=== PATIENT | female | born 1995 | race Caucasian/White ===

== ENCOUNTER 2016-06-23 19:22 | Emergency (ER) | payer MEDICAID, OTHER ==
--- NOTE | 2016-06-23 22:01 | EDDOCDS ---
Physician Documentation [facility] Name: Nedra Walker Age: 20 yrs Sex: Female : 1995 Arrival Date: 06/23/2016 Time: 19:22 Bed PR Private MD: NO PRIMARY PHYSICIAN, . Disposition: 06/23/16 21:55 Discharged to Home/Self Care. Impression: related conditions, unspecified, third trimester - pedal edema. - Condition is Stable. - Discharge Instructions: Edema. - Medication Reconciliation form. - Follow up: Emergency Department; When: As needed; Reason: Worsening of conditions. Follow up: Guillermo Brock MD; When: Call to arrange an appointment; Reason: Wound/Symptom Recheck, Recheck today's complaints, Worsening of conditions, Continuance of care. - Problem is an ongoing problem. - Symptoms are unchanged. Historical: - Allergies: no known allergies; - Home Meds: 1. none - PMHx: none; - PSHx: none; - Social history: Smoking status: Patient uses tobacco products, light tobacco smoker. No barriers to communication noted, The patient speaks fluent Croatian. - Family history: Not pertinent. - : The pt / caregiver states he / she is not on anticoagulants. Home medication list is obtained from the patient. - Exposure Risk Screening:: None identified. 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 6 in. (167.64 cm) (R); Pain 0/10; 21:40 BP 129 / 60; Pulse 72; Resp 18; Temp 97.8(T); Pulse Ox 95% ; jb5 19:24 Body Mass Index 40.35 (113.40 kg, 167.64 cm) elp MDM: 20:07 Heart Tones ordered. cc10 20:09 US Lower Extremities Bilateral R/O DVT Ordered. EDMS 21:33 Vital Signs ordered. cc10 21:59 Financial registration complete. zo Signatures: Dispatcher MedHost Jennifer Núñez, Lion Dang RN, mcp, Colin, ELIER PAPepeC cc10 MTDD
--- NOTE | 2016-06-23 22:02 | EDDOCDS ---
Nurse's Notes [facility] Name: Nedra Walker Age: 20 yrs Sex: Female : 1995 Arrival Date: 06/23/2016 Time: 19:22 Bed PR Private MD: NO PRIMARY PHYSICIAN, . Diagnosis: related conditions, unspecified, third trimester-pedal edema Presentation: 06/23 19:26 Presenting complaint: Patient states: Right foot started swelling yesterday--is 39 mcp weeks . Adult Sepsis Screening: The patient does not have new or worsening altered mentation. Patient's respiratory rate is less than 22. Systolic blood pressure is greater than 100. Patient has a qSOFA score of 0- Negative Sepsis Screen. Suicide/Homicide risk assessment- the patient denies having any suicidal and/or homicidal ideations and does not present with any other emotional, behavioral or mental health complaints. Status: Patient is not a service writer advisor or dependent. Transition of care: patient was not received from another setting of care. 19:26 Acuity: DAVID Level 4 [facility] 19:26 Method Of Arrival: Walkin/Carried/Asstd [facility] Triage Assessment: 19:29 General: Appears in no apparent distress, Behavior is cooperative. Pain: Denies pain. [facility] HIV screening NA for this visit Offered previously. Neurological: No deficits noted. Respiratory: Airway is patent Respiratory effort is even, unlabored. Derm: Skin is pink, warm & dry. Musculoskeletal: Swelling present in right foot. 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 none - PMHx: none; - PSHx: none; - Social history: Smoking status: Patient uses tobacco products, light tobacco smoker. No barriers to communication noted, The patient speaks fluent [place]. - Family history: Not pertinent. - : The pt / caregiver states he / she is not on anticoagulants. Home medication list is obtained from the patient. - Exposure Risk Screening:: None identified. Screenin:59 Screening information is obtained from the patient. Fall risk: No risks identified. mcp Assistance ADL's: requires no assistance with activities of daily living. Abuse/DV Screen: The patient / caregiver reports he/she is: not in a situation that causes fear, pain or injury. Nutritional screening: No deficits noted. Advance Directives: There is no active DNR order. home support is adequate. Assessment: 21:59 General: Appears in no apparent distress, Behavior is cooperative. Pain: Denies pain. mcp Neurological: No deficits noted. Respiratory: Airway is patent Respiratory effort is even, unlabored. Derm: Skin is pink, warm & dry. Musculoskeletal: Swelling present in right foot and left foot. Vital Signs: 19:24 BP 138 / 64; Pulse 93; Resp 18; Temp 98.7(O); Pulse Ox 97% on R/A; Weight 113.4 kg (R); elp Height 5 ft. 6 in. (167.64 cm) (R); Pain 0/10; 21:40 BP 129 / 60; Pulse 72; Resp 18; Temp 97.8(T); Pulse Ox 95% ; jb5 19:24 Body Mass Index 40.35 (113.40 kg, 167.64 cm) elp Vitals: 19:24 Log In Time: June 23, 2016 at 19:22. elp 20:23 Heart Tones 148BPM. [facility] ED Course: 19:24 Patient visited by Bree Haddad PCA. elp 19:24 NO PRIMARY PHYSICIAN, . is Private Physician. elp 19:24 Patient moved to Waiting elp 19:25 Patient visited by Bree Haddad PCA. elp 19:25 Patient moved to Pre RCE elp 19:27 Triage Initiated [facility] 19:29 Patient visited by Jennifer Monzon RN. mcp 19:38 Patient moved to Triage 1 [facility] 19:56 Keith Onofre [facility]C [facility] cc10 19:56 Chris Hoang DO is Attending Physician. cc10 19:56 Patient visited by Keith Onofre PA-C. cc10 19:56 Patient visited by Keith Onofre PA-C. cc10 20:23 Patient moved to TR1 [facility] 21:35 Patient moved to PR1 / 25 [facility] 21:36 Patient visited by Fanny Martinez PCA. jb5 21:41 Patient visited by Fanny Martinez PCA. jb5 21:55 Guillermo Brock MD is Referral Physician. cc10 21:59 The patient / caregiver is instructed regarding the plan of care and ED course. Patient mcp has correct armband on for positive identification. Bed in low position. Call light in reach. 22:00 No IV's were initiated during this patient's visit. No procedures done that require mcp assistance. Order Results: There are currently no results for this order. Outcome: 21:55 Discharge ordered by Provider. cc10 22:00 Discharge Assessment: patient administered narcotics - no. The following High Risk mcp Discharge criteria are identified: None. Discharged to home ambulatory. Condition: stable. Discharge instructions given to patient, Instructed on discharge instructions, follow up and referral plans. Demonstrated understanding of instructions, Pt was receptive of discharge instructions/ teaching. Ultrasound Study completed. Property sent home with patient. 22:01 Patient left the ED. mcp Signatures: Jennifer Monzon, RN RN Fanny Chacon, DRILLER'S ASSISTANT DRILLER'S ASSISTANT jb5 Vanessa Lopez RN RN Bree Dyson, DRILLER'S ASSISTANT DRILLER'S ASSISTANT Keith Dye, PA-C PA-C cc10 CHIQUIS
--- NOTE | 2016-06-23 22:10 | REPUSA ---
Clinical history: Pain, swelling. Findings: The common femoral, superficial femoral, popliteal, and other deep venous structures compre ss normally and demonstrate normal color Doppler flow. Normal venous waveforms with augmentation are seen. Impression: No evidence of deep vein thrombosis in either femoral popliteal venous system.
--- NOTE | 2016-06-27 10:02 | EDDOCDS ---
Physician Documentation [facility] Name: Nedra Walker Age: 20 yrs Sex: Female : 1995 Arrival Date: 06/23/2016 Time: 19:22 Bed PR Private MD: NO PRIMARY PHYSICIAN, . Disposition: 06/23/16 21:55 Discharged to Home/Self Care. Impression: related conditions, unspecified, third trimester - pedal edema. - Condition is Stable. - Discharge Instructions: Edema. - Medication Reconciliation form. - Follow up: Emergency Department; When: As needed; Reason: Worsening of conditions. Follow up: Guillermo Brock MD; When: Call to arrange an appointment; Reason: Wound/Symptom Recheck, Recheck today's complaints, Worsening of conditions, Continuance of care. - Problem is an ongoing problem. - Symptoms are unchanged. Historical: - Allergies: no known allergies; - Home Meds: 1. none - PMHx: none; - PSHx: none; - Social history: Smoking status: Patient uses tobacco products, light tobacco smoker. No barriers to communication noted, The patient speaks fluent Macedonian. - Family history: Not pertinent. - : The pt / caregiver states he / she is not on anticoagulants. Home medication list is obtained from the patient. - Exposure Risk Screening:: None identified. 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 6 in. (167.64 cm) (R); Pain 0/10; 21:40 BP 129 / 60; Pulse 72; Resp 18; Temp 97.8(T); Pulse Ox 95% ; jb5 19:24 Body Mass Index 40.35 (113.40 kg, 167.64 cm) elp MDM: 20:07 Heart Tones ordered. cc10 20:09 US Lower Extremities Bilateral R/O DVT Ordered. EDMS 21:33 Vital Signs ordered. cc10 21:59 Financial registration complete. zo 23:29 [facility] Payment Agreement was scanned into Skoovy and attached to record. zo 06/24 08:22 T-Sheet-- Draft Copy was scanned into Skoovy and attached to record. [facility] Signatures: Dispatcher [employer] Jennifer Núñez RN Lion Dang mcp, Colin, PA-C PA-C cc10 Mikaela Lopez [facility] The chart was reviewed and I authenticate all verbal orders and agree with the evaluation and treatment provided.Attachments: 06/23 23:29 [facility] Payment Agreement zo 06/24 08:22 T-Sheet-- Draft Copy [facility] Chart Complete MTDD
--- NOTE | 2016-06-27 10:02 | EDDOCDS ---
Nurse's Notes [facility] Name: Nedra Walker Age: 20 yrs Sex: Female : 1995 Arrival Date: 06/23/2016 Time: 19:22 Bed PR Private MD: NO PRIMARY PHYSICIAN, . Diagnosis: related conditions, unspecified, third trimester-pedal edema Presentation: 06/23 19:26 Presenting complaint: Patient states: Right foot started swelling yesterday--is 39 mcp weeks . Adult Sepsis Screening: The patient does not have new or worsening altered mentation. Patient's respiratory rate is less than 22. Systolic blood pressure is greater than 100. Patient has a qSOFA score of 0- Negative Sepsis Screen. Suicide/Homicide risk assessment- the patient denies having any suicidal and/or homicidal ideations and does not present with any other emotional, behavioral or mental health complaints. Status: Patient is not a ambulatory services representative or dependent. Transition of care: patient was not received from another setting of care. 19:26 Acuity: DAVID Level 4 [facility] 19:26 Method Of Arrival: Walkin/Carried/Asstd [facility] Triage Assessment: 19:29 General: Appears in no apparent distress, Behavior is cooperative. Pain: Denies pain. [facility] HIV screening NA for this visit Offered previously. Neurological: No deficits noted. Respiratory: Airway is patent Respiratory effort is even, unlabored. Derm: Skin is pink, warm & dry. Musculoskeletal: Swelling present in right foot. 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 none - PMHx: none; - PSHx: none; - Social history: Smoking status: Patient uses tobacco products, light tobacco smoker. No barriers to communication noted, The patient speaks fluent Cuban. - Family history: Not pertinent. - : The pt / caregiver states he / she is not on anticoagulants. Home medication list is obtained from the patient. - Exposure Risk Screening:: None identified. Screenin:59 Screening information is obtained from the patient. Fall risk: No risks identified. mcp Assistance ADL's: requires no assistance with activities of daily living. Abuse/DV Screen: The patient / caregiver reports he/she is: not in a situation that causes fear, pain or injury. Nutritional screening: No deficits noted. Advance Directives: There is no active DNR order. home support is adequate. Assessment: 21:59 General: Appears in no apparent distress, Behavior is cooperative. Pain: Denies pain. mcp Neurological: No deficits noted. Respiratory: Airway is patent Respiratory effort is even, unlabored. Derm: Skin is pink, warm & dry. Musculoskeletal: Swelling present in right foot and left foot. Vital Signs: 19:24 BP 138 / 64; Pulse 93; Resp 18; Temp 98.7(O); Pulse Ox 97% on R/A; Weight 113.4 kg (R); elp Height 5 ft. 6 in. (167.64 cm) (R); Pain 0/10; 21:40 BP 129 / 60; Pulse 72; Resp 18; Temp 97.8(T); Pulse Ox 95% ; jb5 19:24 Body Mass Index 40.35 (113.40 kg, 167.64 cm) elp Vitals: 19:24 Log In Time: June 23, 2016 at 19:22. elp 20:23 Heart Tones 148BPM. [facility] ED Course: 19:24 Patient visited by Bree Haddad PCA. elp 19:24 NO PRIMARY PHYSICIAN, . is Private Physician. elp 19:24 Patient moved to Waiting elp 19:25 Patient visited by Bree Haddad PCA. elp 19:25 Patient moved to Pre RCE elp 19:27 Triage Initiated [facility] 19:29 Patient visited by Jennifer Monzon RN. mcp 19:38 Patient moved to Triage 1 [facility] 19:56 [facility] cc[facility] 19:56 Chris Hoang DO is Attending Physician. cc10 19:56 Patient visited by Keith Onofre PA-C. cc10 19:56 Patient visited by Keith Onofre PA-C. cc10 20:23 Patient moved to TR1 [facility] 21:35 Patient moved to PR1 / 25 [facility] 21:36 Patient visited by Fanny Martinez PCA. jb5 21:41 Patient visited by Fanny Martinez PCA. jb5 21:55 Guillermo Brock MD is Referral Physician. cc10 21:59 The patient / caregiver is instructed regarding the plan of care and ED course. Patient mcp has correct armband on for positive identification. Bed in low position. Call light in reach. 22:00 No IV's were initiated during this patient's visit. No procedures done that require mcp assistance. 22:52 US Lower Extremities Bilateral R/O DVT Returned. EDNE 23:29 [facility] Payment Agreement was scanned into MOLI and attached to record. jonnie 06/24 08:22 T-Sheet-- Draft Copy was scanned into MOLI and attached to record. [facility] Order Results: Radiology Order: US Lower Extremities Bilateral R/O DVT Test: US Lower Extremities Bilateral R/O DVT REASON FOR EXAMINATION: Deformity/Swelling; ; Clinical history: Pain, swelling.; Findings: The common femoral, superficial femoral, popliteal, and other deep venous structures compre; ss normally and demonstrate normal color Doppler flow. Normal venous waveforms with augmentation are; seen.; Impression:; No evidence of deep vein thrombosis in either femoral popliteal venous system.; ; Outcome: 06/23 21:55 Discharge ordered by Provider. cc10 22:00 Discharge Assessment: patient administered narcotics - no. The following High Risk mcp Discharge criteria are identified: None. Discharged to home ambulatory. Condition: stable. Discharge instructions given to patient, Instructed on discharge instructions, follow up and referral plans. Demonstrated understanding of instructions, Pt was receptive of discharge instructions/ teaching. Ultrasound Study completed. Property sent home with patient. 22:01 Patient left the ED. mcp Signatures: [facility] Jennifer Monzon RN RN Fanny Chacon, ILLUSTRATOR SET ILLUSTRATOR SET jb5 Lion Cheek Jane, RN RN [facility] Bree Haddad, ILLUSTRATOR SET ILLUSTRATOR SET andrep Keith Onofre PAPepeC PAPepeC cc10 Mikaela Lopez Chart Complete MTDD
--- NOTE | 2016-06-27 10:02 | EDDOCDS ---
Physician Documentation [facility] Name: Nedra Walker Age: 20 yrs Sex: Female : 1995 Arrival Date: 06/23/2016 Time: 19:22 Bed PR Private MD: NO PRIMARY PHYSICIAN, . Disposition: 06/23/16 21:55 Discharged to Home/Self Care. Impression: related conditions, unspecified, third trimester - pedal edema. - Condition is Stable. - Discharge Instructions: Edema. - Medication Reconciliation form. - Follow up: Emergency Department; When: As needed; Reason: Worsening of conditions. Follow up: Guillermo Brock MD; When: Call to arrange an appointment; Reason: Wound/Symptom Recheck, Recheck today's complaints, Worsening of conditions, Continuance of care. - Problem is an ongoing problem. - Symptoms are unchanged. Historical: - Allergies: no known allergies; - Home Meds: 1. none - PMHx: none; - PSHx: none; - Social history: Smoking status: Patient uses tobacco products, light tobacco smoker. No barriers to communication noted, The patient speaks fluent Sami. - Family history: Not pertinent. - : The pt / caregiver states he / she is not on anticoagulants. Home medication list is obtained from the patient. - Exposure Risk Screening:: None identified. 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 6 in. (167.64 cm) (R); Pain 0/10; 21:40 BP 129 / 60; Pulse 72; Resp 18; Temp 97.8(T); Pulse Ox 95% ; jb5 19:24 Body Mass Index 40.35 (113.40 kg, 167.64 cm) elp MDM: 20:07 Heart Tones ordered. cc10 20:09 US Lower Extremities Bilateral R/O DVT Ordered. EDMS 21:33 Vital Signs ordered. cc10 21:59 Financial registration complete. zo 23:29 [facility] Payment Agreement was scanned into [employer]Noise and attached to record. zo 06/24 08:22 T-Sheet-- Draft Copy was scanned into oNoise and attached to record. [facility] Signatures: Dispatcher [employer] Jennifer Núñez RN Lion Dang mcp, Colin, PA-C PA-C cc10 Mikaela Lopez [facility] The chart was reviewed and I authenticate all verbal orders and agree with the evaluation and treatment provided.Attachments: 06/23 23:29 [facility] Payment Agreement zo 06/24 08:22 T-Sheet-- Draft Copy [facility] Chart Complete MTDD
== END 2016-06-23 22:01 | disposition home or self-care (01) ==
LOC: M ED 19:22
DX: O12.03 Gestational edema, third trimester (principal); O99.333 Smoking (tobacco) complicating pregnancy, third trimester; Z3A.39 39 weeks gestation of pregnancy

== ENCOUNTER 2016-07-08 12:58 | Inpatient (IN) | payer OTHER ==
[2016-07-08] VITALS (28 sets, daily range): BP systolic 102–152; BP diastolic 51–88
[~2016-07-08] VITALS: Ht 167.6 cm; Wt 112.0 kg
[2016-07-08] MEDS ORDERED: FLINCHW9 PO (13:08)
[2016-07-08] MEDS ORDERED: LACTATED RINGER'S 1000 ML IV STA (15:16)
[2016-07-08] MEDS ORDERED: LR 1,000 ML IV SCH (15:16)
[2016-07-08] MEDS ORDERED: OXYTOCIN DRIP 30 UNITS in APPROPRIATE DILUENT 1 EA IV SCH (15:30)
[2016-07-08 16:27] LABS: MEAN CORPUSCULAR HEMOGLOBIN 25.3 pg (27.0-33.0); MEAN CORPUSCULAR HGB CONC 31.3 g/dl (32.0-36.5); MEAN CORPUSCULAR VOLUME 80.7 fl (80.0-96.0)
[2016-07-08 16:49] LABS: ALT/SGPT 36 U/L (12-78); AST/SGOT 24 U/L (15-37); BILIRUBIN,TOTAL 0.2 MG/DL (0.2-1.0); CREATININE FOR GFR 0.63 MG/DL (0.55-1.02); URIC ACID 5.4 MG/DL (2.6-6.0)
[2016-07-08] MEDS ORDERED: PROMETHAZINE INJ 25 MG/ML VIAL (J2550) IV ONE (19:30)
[2016-07-08] MEDS ORDERED: BUTORPHANOL 2 MG/ML INJ (J0595) IV ONE (19:30)
[2016-07-08] MEDS ORDERED: FENTANYL 2MCG/ML ROPIVACAINE 0.2% NACL 250 ML CADD As Ordered ONE (22:39)
[2016-07-09] VITALS (29 sets, daily range): BP systolic 105–161; BP diastolic 55–83
[2016-07-09] MEDS ORDERED: EPIDURAL/PCA KEYS XX PRN (00:15)
[2016-07-09] MEDS ORDERED: ePHEDrine SULFATE 25 MG/5 ML(5MG/ML) SYRINGE IV PRN (00:15)
[2016-07-09] MEDS ORDERED: REFRIGERATOR IV KEYS XX PRN (00:15)
[2016-07-09] MEDS ORDERED: EPIDURAL COMMENT XX SCH (00:15)
[2016-07-09] MEDS ORDERED: FENTANYL/ROPIVACAINE/NACL CADD 250 ML EPIDURAL SCH (00:15)
[2016-07-09] MEDS ORDERED: ONDANSETRON 4MG/2ML VIAL (J2405) IV PRN ×2 (00:15→07:30)
[2016-07-09] MEDS ORDERED: OXYTOCIN DRIP 30 UNITS in APPROPRIATE DILUENT 1 EA IV SCH (07:17)
[2016-07-09] MEDS: LR 1,000 ML IV SCH ×3 (07:17→23:17)
[2016-07-09] MEDS ORDERED: METHYLERGONOVINE MALEATE 0.2 MG TAB PO PRN (07:30)
[2016-07-09] MEDS ORDERED: MEASLES,MUMPS,RUBELLA VACCINE INJ (MMR-II) (90707) SC SCH (07:30)
[2016-07-09] MEDS ORDERED: PROMETHAZINE 25 MG TAB PO PRN (07:30)
[2016-07-09] MEDS ORDERED: RHOGAM 300 MCG (1500 IU) INJ (J2790) IM SCH (07:30)
[2016-07-09] MEDS ORDERED: DOCUSATE SODIUM 100 MG CAP PO PRN (07:30)
[2016-07-09] MEDS ORDERED: ACETAMINOPHEN 500 MG TAB PO PRN (07:30)
[2016-07-09] MEDS ORDERED: DIBUCAINE 1% OINTMENT 30GM TOP PRN (07:30)
[2016-07-09] MEDS: PRENATAL VITAMIN TAB PO SCH (12:04)
[2016-07-10 06:18] VITALS: BP 127/68
[2016-07-10] MEDS: LR 1,000 ML IV SCH (07:17)
[2016-07-10] MEDS: PRENATAL VITAMIN TAB PO SCH (08:11)
[2016-07-10] MEDS: IBUPROFEN 800 MG TAB PO PRN ×2 (08:12→23:05)
[2016-07-10] MEDS ORDERED: INFLUENZA QUADRIVALENT PF VACCINE 0.5ML SYRINGE/VIAL (90686) IM ONE (09:00)
[2016-07-10 18:00] VITALS: BP 132/65
[2016-07-11 06:07] VITALS: BP 135/67
[2016-07-11] MEDS ORDERED: ACET50TA PO (08:38)
[2016-07-11] MEDS ORDERED: NUPE1OIN2 TOP (08:38)
[2016-07-11] MEDS ORDERED: IBUP-1114 PO (08:38)
[2016-07-11] MEDS ORDERED: PRENTAB9 PO (08:38)
[2016-07-11] MEDS: PRENATAL VITAMIN TAB PO SCH (08:59)
== END 2016-07-11 15:40 | disposition home or self-care (01) | DRG 560 ==
LOC: M LDO 12:58 → M LDI 14:40 → M OBS 07-09 08:53
PROVIDERS: ADMIT Obstetrics & Gynecology; ATTEND Obstetrics & Gynecology
PROC: 10907ZC Drainage of Amniotic Fluid, Therapeutic from Products of Conception, Via Natural or Artificial Opening (ICD-10-PCS; 2016-07-08)
PROC: 10E0XZZ Delivery of Products of Conception, External Approach (ICD-10-PCS; principal; 2016-07-09)
PROC: 0KQM0ZZ Repair Perineum Muscle, Open Approach (ICD-10-PCS; 2016-07-09)
DX: O48.0 Post-term pregnancy (principal); Z3A.41 41 weeks gestation of pregnancy; O99.334 Smoking (tobacco) complicating childbirth; F17.210 Nicotine dependence, cigarettes, uncomplicated; O99.214 Obesity complicating childbirth; E66.9 Obesity, unspecified; O70.1 Second degree perineal laceration during delivery; Z37.0 Single live birth

== ENCOUNTER 2017-02-11 00:34 | Emergency (ER) | payer OTHER ==
[~2017-02-11] VITALS: Ht 167.6 cm; Wt 101.4 kg
[~2017-02-11 00:34] MED LIST: ACET50TA PO; FLINCHW9 PO; IBUP-1114 PO; NUPE1OIN2 TOP; PRENTAB9 PO
[2017-02-11 00:48] VITALS: BP 139/78
[2017-02-11] MEDS ORDERED: CLOTRIMAZOLE ANTI12 TOP (01:35)
== END 2017-02-11 01:47 | disposition home or self-care (01) ==
LOC: M ED 00:34
DX: B35.4 Tinea corporis (principal); F17.210 Nicotine dependence, cigarettes, uncomplicated

== ENCOUNTER → 2017-03-23 | Outpatient (REF) | payer OTHER ==
[~2017-03-23] MED LIST changes: +CLOTRIMAZOLE ANTI12 TOP
[2017-03-23 18:12] LABS: ALBUMIN 3.6 GM/DL (3.2-5.2); ALBUMIN/GLOBULIN RATIO 0.92 (1.00-1.93); ALKALINE PHOSPHATASE 85 U/L (45-117); ALT/SGPT 39 U/L (12-78); ANION GAP 9 MEQ/L (8-16); AST/SGOT 17 U/L (15-37); BILIRUBIN,TOTAL 0.2 MG/DL (0.2-1.0); BLOOD UREA NITROGEN 13 MG/DL (7-18); CALCIUM LEVEL 8.9 MG/DL (8.5-10.1); CARBON DIOXIDE LEVEL 25 MEQ/L (21-32); CHLORIDE LEVEL 107 MEQ/L (98-107); CREATININE FOR GFR 0.75 MG/DL (0.55-1.02); FREE T4 1.19 NG/DL (0.78-1.33); GLUCOSE, FASTING 76 MG/DL (70-105); POTASSIUM SERUM 4.1 MEQ/L (3.5-5.1); SODIUM LEVEL 141 MEQ/L (136-145); TOTAL PROTEIN 7.5 GM/DL (6.4-8.2)
== END ==
LOC: M SFHCPLAZ 15:49
PROVIDERS: ATTEND Nurse Practitioner Family
DX: Z00.00 Encounter for general adult medical examination without abnormal findings (principal); Z68.41 Body mass index [BMI] 40.0-44.9, adult

== ENCOUNTER → 2017-07-31 | Outpatient (REF) | payer OTHER, MEDICAID ==
[2017-07-31 14:04] LABS: CHLAMYDIA DNA AMPLIFICATION NEGATIVE (NEGATIVE); GC DNA AMPLIFICATION NEGATIVE (NEGATIVE)
[2017-07-31 14:34] LABS: LUTEINIZING HORMONE 8.8 mIU/mL; PROLACTIN 7.8 NG/ML
[2017-07-31 14:35] LABS: FOLLICLE STIMULATING HORMONE 7.7 mIU/mL
[2017-08-04 00:06] LABS: 17 HYDROXY PROGESTERONE 10 ng/dL (.); DEHYDROEPIANDROSTERONE SULFATE 159.5 ug/dL (110.0-431.7)
== END ==
LOC: M SFHCWAGY 11:28
DX: N91.2 Amenorrhea, unspecified (principal)
CPT/HCPCS: 83001

== ENCOUNTER → 2018-04-11 | Outpatient (REF) | payer OTHER ==
[2018-04-11 16:21] LABS: BASO % 0.4 % (0.0-1.0); EOS # 0.1 10^3/uL (0.0-0.50); EOS % 1.7 % (0.0-3.0); IMMATURE GRANULOCYTE % 0.3 % (0-3.0); LYMPH # 1.8 10^3/uL (1.5-6.5); LYMPH % 22.9 % (24.0-44.0); MEAN CORPUSCULAR HEMOGLOBIN 26.8 pg (27.0-33.0); MEAN CORPUSCULAR HGB CONC 31.8 g/dl (32.0-36.5); MEAN CORPUSCULAR VOLUME 84.3 fl (80.0-96.0); MONO # 0.5 10^3/uL (0.0-0.8); MONO % 5.9 % (0.0-5.0); NEUTROPHILS # 5.4 10^3/uL (1.8-7.7); NEUTROPHILS % 68.8 % (36.0-66.0); PLATELET COUNT, AUTOMATED 182 10^3/uL (150-450); RED BLOOD COUNT 5.22 10^6/uL (4.00-5.40); RED CELL DISTRIBUTION WIDTH 14.7 % (11.5-14.5); WHITE BLOOD COUNT 7.8 10^3/uL (4.0-10.0)
[2018-04-11 16:40] LABS: ALBUMIN 3.7 GM/DL (3.2-5.2); ALBUMIN/GLOBULIN RATIO 1.06 (1.00-1.93); ALKALINE PHOSPHATASE 103 U/L (45-117); ALT/SGPT 16 U/L (12-78); ANION GAP 9 MEQ/L (8-16); AST/SGOT 14 U/L (7-37); BILIRUBIN,TOTAL 0.3 MG/DL (0.2-1.0); BLOOD UREA NITROGEN 10 MG/DL (7-18); CALCIUM LEVEL 9.3 MG/DL (8.5-10.1); CARBON DIOXIDE LEVEL 27 MEQ/L (21-32); CHLORIDE LEVEL 106 MEQ/L (98-107); CREATININE FOR GFR 0.74 MG/DL (0.55-1.30); FREE T4 1.13 NG/DL (0.76-1.46); GLOMERULAR FILTRATION RATE > 60.0 (>60); GLUCOSE, FASTING 87 MG/DL (70-100); SODIUM LEVEL 142 MEQ/L (136-145); TOTAL PROTEIN 7.2 GM/DL (6.4-8.2)
== END ==
LOC: M SFHCPLAZ 12:05
DX: K52.9 Noninfective gastroenteritis and colitis, unspecified (principal); E66.9 Obesity, unspecified; F32.9 Major depressive disorder, single episode, unspecified
CPT/HCPCS: 84443

== ENCOUNTER → 2018-05-27 | Outpatient (REF) | payer OTHER ==
[2018-05-27 18:32] LABS: BASO % 0.5 % (0.0-1.0); EOS # 0.2 10^3/uL (0.0-0.50); EOS % 2.4 % (0.0-3.0); HEMATOCRIT 42.6 % (36.0-47.0); HEMOGLOBIN 13.4 g/dl (12.0-15.5); IMMATURE GRANULOCYTE % 0.3 % (0-3.0); LYMPH # 2.1 10^3/uL (1.5-6.5); LYMPH % 24.1 % (24.0-44.0); MEAN CORPUSCULAR HGB CONC 31.5 g/dl (32.0-36.5); MEAN CORPUSCULAR VOLUME 85.9 fl (80.0-96.0); MONO # 0.5 10^3/uL (0.0-0.8); NEUTROPHILS # 5.8 10^3/uL (1.8-7.7); NEUTROPHILS % 66.7 % (36.0-66.0); PLATELET COUNT, AUTOMATED 207 10^3/uL (150-450); RED BLOOD COUNT 4.96 10^6/uL (4.00-5.40); RED CELL DISTRIBUTION WIDTH 14.3 % (11.5-14.5); WHITE BLOOD COUNT 8.6 10^3/uL (4.0-10.0)
[2018-05-27 18:49] LABS: LIPASE 78 U/L (73-393)
[2018-05-27 18:49] LABS: AMYLASE 37 U/L (25-115)
[2018-05-27 21:05] LABS: CHLAMYDIA DNA AMPLIFICATION NEGATIVE (NEGATIVE); GC DNA AMPLIFICATION NEGATIVE (NEGATIVE)
[2018-05-29 09:45] LABS: HIV 1&2 SCREEN CENTAUR NEGATIVE (NEGATIVE)
== END ==
LOC: M SFHCPLAZ 15:47
DX: Z20.2 Contact with and (suspected) exposure to infections with a predominantly sexual mode of transmission (principal); R10.13 Epigastric pain
CPT/HCPCS: 82150

== ENCOUNTER → 2018-06-05 | Outpatient (CLI) | payer OTHER ==
[~2018-06-05] MED LIST changes: -ACET50TA PO; +MAPA500T17 PO
--- NOTE | 2018-06-05 07:54 | REP ---
Clinical: Epigastric pain. Technique: Real time mclaughlin scale ultrasound examination using curved array transducer. Findings: Multiple mobile gallstones are identified measuring up to approximately 2 cm without gallbladder wall thickening or sonographic Young's sign. No pericholecystic fluid. No biliary ductal dilatation is appreciated, and the common bile duct measures 3.7 mm diameter. Diffuse fatty infiltration to the liver noted with areas of focal fatty sparing. Pancreas is incompletely evaluated due to interposed bowel gas but visualized portions appear normal. The right kidney is without hydronephrosis and measures 11.3 x 4.5 x 4.8 cm. No ascites. Impression: Cholelithiasis. Electronically Signed by Buzz Mccarteny MD 06/05/2018 07:45 A
== END ==
LOC: M RAD 07:00
PROVIDERS: ATTEND Nurse Practitioner Family
DX: K80.20 Calculus of gallbladder without cholecystitis without obstruction (principal)

== ENCOUNTER 2018-07-12 10:17 | Day surgery (SDC) | payer OTHER ==
[~2018-07-12] VITALS: Ht 167.6 cm; Wt 93.9 kg
[~2018-07-12 10:17] MED LIST changes: -MAPA500T17 PO; +MAPA500T2 PO
[2018-07-12] MEDS ORDERED: LR 1,000 ML IV ONE (11:15)
[2018-07-12] MEDS ORDERED: AMPICILLIN SOD/SULBACTAM SOD 3 GM in D5W MINI-BAG PLUS 100 ML IV ONE (11:15)
[2018-07-12 11:21] LABS: URINE PREG TEST NEGATIVE (NEGATIVE)
[2018-07-12] MEDS ORDERED: ONDANSETRON 4MG/2ML VIAL (J2405) As Ordered ONE ×2 (13:47→16:36)
[2018-07-12] MEDS ORDERED: dexameTHASONE 4 MG/ML 1ML VIAL (J1100) As Ordered ONE (13:47)
[2018-07-12] MEDS ORDERED: METOCLOPRAMIDE INJ 10MG/2ML VIAL (J2765) As Ordered ONE (13:47)
[2018-07-12] MEDS ORDERED: ROCURONIUM BROMIDE 50 MG/5 ML VIAL As Ordered ONE (13:47)
[2018-07-12] MEDS ORDERED: GLYCOPYRROLATE INJ 0.2 MG/ML 2 ML VIAL As Ordered ONE (13:47)
[2018-07-12] MEDS ORDERED: LIDOCAINE 2% INJ 100 MG/5 ML SDV (FOR ANES.) As Ordered ONE (13:47)
[2018-07-12] MEDS ORDERED: PROPOFOL 200 MG/20 ML VIAL As Ordered ONE (13:47)
[2018-07-12] MEDS ORDERED: NEOSTIGMINE 10 MG/10 ML VIAL (J2710) As Ordered ONE (13:47)
[2018-07-12] MEDS ORDERED: MIDAZOLAM INJ 2 MG/2 ML VIAL (J2250) As Ordered ONE (13:50)
[2018-07-12] MEDS ORDERED: fentaNYL 250 MCG/5 ML INJECTION (J3010) As Ordered ONE (13:50)
[2018-07-12] MEDS ORDERED: BUPIVACAINE HCL 0.25% 30 ML VIAL As Ordered ONE (14:42)
[2018-07-12] MEDS ORDERED: CONRAY-60 60% 50ML VIAL (Q9961) As Ordered ONE (14:42)
[2018-07-12] MEDS ORDERED: LIDOCAINE 1% SDV INJ 30 ML VIAL As Ordered ONE (14:42)
[2018-07-12] MEDS ORDERED: KETOROLAC 60 MG/2 ML VIAL (J1885) As Ordered ONE (15:50)
[2018-07-12] MEDS ORDERED: fentaNYL 100 MCG/2 ML INJECTION (J3010) As Ordered ONE (16:22)
[2018-07-12] MEDS: fentaNYL 100 MCG/2 ML INJECTION (J3010) IV PRN ×2 (16:40→16:48)
[2018-07-12] MEDS ORDERED: ONDANSETRON 4MG/2ML VIAL (J2405) IV PRN ×2 (16:45)
[2018-07-12] MEDS ORDERED: NORCO, ANEXSIA 5/325MG TABLET (HYDROcodone/ACETAMINOPHEN) PO PRN ×2 (16:45)
[2018-07-12] MEDS ORDERED: PERCOCET 5MG/325MG TAB PO PRN (16:45)
[2018-07-12] MEDS ORDERED: KETOROLAC 30 MG/ML VIAL (J1885) IV PRN (16:45)
[2018-07-12] MEDS ORDERED: LR 1,000 ML IV SCH (16:45)
[2018-07-12 19:10] VITALS: BP 120/65
[2018-07-12] MEDS ORDERED: NORCOTAB PO (19:53)
--- NOTE | 2018-07-16 12:55 | ROOPDOC ---
[facility] Report Of Operation Report of Operation DATE OF PROCEDURE: 07/16/18 PREPROCEDURE DIAGNOSES: Cholelithiasis, biliary colic. POSTPROCEDURE DIAGNOSES: Cholelithiasis, chronic cholecystitis. PROCEDURE: Laparoscopic cholecystectomy. SURGEON: Carl Child MD DIRECTOR INFORMATION: MD Dr. Nuria Da Silva assisted in placement of laparoscopic ports, retraction of the gallbladder, driving the camera and providing input in identification of the vital structures ANESTHESIA: Gen. anesthesia. ESTIMATED BLOOD LOSS: Approximately 10 mL. COMPLICATIONS: None. REMARKS: Distended gallbladder, minimally thick-walled. Stones found at the neck of the gallbladder and likewise no proximal cystic duct. DESCRIPTION OF PROCEDURE: Patient was given a dose Unasyn 3 g IV preoperatively for prophylaxis. She was brought to the operating room, laid supine on the table, compression boots placed for DVT prophylaxis. General endotracheal anesthesia started. Her abdomen then prepped and draped in usual sterile fashion. Surgical timeout was performed prior to starting surgery. Entry into the abdomen done through an incision above the umbilicus. A Veress needle was inserted with a controlled fashion. CO2 insufflation started to pressure 15 mmHg. Using the same incision a 5 mm Visiport was placed under direct vision laparoscope. The area underneath the insertion site was inspected and no injury found. She was then placed in steep reverse Trendelenburg. Her right side was tilted up to further expose the gallbladder. Under direct vision a 11 mm epigastric port and Two 5 mm working ports placed along the right subcostal line. Operative findings: Her liver is noted to be smooth in contour no nodularities or lesions found, minimally enlarged. Her gallbladder is mildly thickened, moderately distended. Distention is more pronounced over the lower body and neck the gallbladder. There is a good amount of adipose tissue deposition over the area. Her cystic duct after dissection is mildly enlarged but able to accommodate a 10 mm clip. There was a couple of stone stuck proximal portion of the cystic duct and free floating at the neck of the gallbladder. The fundus of the gallbladder was grasped and the gallbladder was elevated superiorly exposing the neck of the gallbladder. The peritoneum overlying the area was opened up and dissected free both anteriorly and posteriorly to help wi th retraction of the gallbladder. The hepatocystic triangle was approached and dissected using a [place] and instrument. The cystic duct was identified coming off from the next gallbladder this was circumferentially dissected. The cystic artery was identified in its usual position medially behind a small lymph node of Calot. This was similarly circumferentially dissected off surrounding adipose tissue. We continued posterior dissection proximally at the next gallbladder until a critical view of safety was achieved whereby only the previously identified duct and artery coursing through the neck the gallbladder. At this point the cystic artery was clipped 4 times and divided. After again checking her anatomy and verifying that the previously identified cystic duct, this was also clipped 4 times and divided. I partially transected the cystic duct in between the clips and placed another clip passing through the midportion of the cystic duct and the distal wall of the cystic duct. The rest of the gallbladder was then dissected free of the gallbladder bed using Bovie cautery. There was minimal bleeding at the lateral gallbladder attachments to the liver capsule this was easily controlled with Bovie cautery. The gallbladder was then placed in an Endo Catch bag and retrieved outside through the epigastric port site. The epigastric port site was enlarged bluntly to accommodate the portion of the gallbladder containing moderate-sized stones.. After re-insufflation and inspected the clips and noted this to be in place. No further bleeding noted. No bile leakage noted. The abdomen was deflated all ports were removed. The epigastric fascial defect repaired with 0 Vicryl in a mattress fashion. Rest of the skin incisions closed with 4-0 Monocryl in subcuticular fashion. Steri- Strips and gauze dressings were placed, the wound. Patient was informed they awakened, extubated and brought to recovery room stable CARL CHILD MD Jul 16, 2018 12:55
== END 2018-07-12 19:10 | disposition home or self-care (01) ==
LOC: M SDC 10:17
PROVIDERS: ATTEND Surgery
DX: K80.18 Calculus of gallbladder with other cholecystitis without obstruction (principal); F17.210 Nicotine dependence, cigarettes, uncomplicated; F41.9 Anxiety disorder, unspecified; F32.9 Major depressive disorder, single episode, unspecified
CPT/HCPCS: 47562; 84703; 88304; J1100; J1885; J2250; J2405; J2710; J2765; J3010

== ENCOUNTER 2018-07-30 23:01 | Emergency (ER) | payer OTHER ==
[~2018-07-30] VITALS: Ht 167.6 cm; Wt 91.8 kg
[~2018-07-30 23:01] MED LIST changes: +NORCOTAB PO
[2018-07-30 23:54] LABS: BASO % 0.4 % (0.0-1.0); EOS # 0.2 10^3/uL (0.0-0.50); EOS % 2.3 % (0.0-3.0); HEMATOCRIT 42.4 % (36.0-47.0); HEMOGLOBIN 13.5 g/dl (12.0-15.5); LYMPH % 21.1 % (24.0-44.0); MEAN CORPUSCULAR HEMOGLOBIN 27.1 pg (27.0-33.0); MEAN CORPUSCULAR HGB CONC 31.8 g/dl (32.0-36.5); MONO # 0.6 10^3/uL (0.0-0.8); MONO % 6.6 % (0.0-5.0); NEUTROPHILS # 6.5 10^3/uL (1.8-7.7); NEUTROPHILS % 69.2 % (36.0-66.0); PLATELET COUNT, AUTOMATED 178 10^3/uL (150-450); RED BLOOD COUNT 4.99 10^6/uL (4.00-5.40); WHITE BLOOD COUNT 9.4 10^3/uL (4.0-10.0)
[2018-07-31] MEDS ORDERED: GI COCKTAIL 50ML BTL(HYOSCYAMINE/MAALOX/LIDOCAINE VISCOUS)(1:3:1) PO ONE
[2018-07-31 00:17] LABS: ALBUMIN 4.2 GM/DL (3.2-5.2); ALT/SGPT 17 U/L (12-78); BILIRUBIN,DIRECT 0.1 MG/DL (0.0-0.2); BILIRUBIN,TOTAL 0.2 MG/DL (0.2-1.0); BLOOD UREA NITROGEN 10 MG/DL (7-18); CALCIUM LEVEL 8.7 MG/DL (8.5-10.1); CARBON DIOXIDE LEVEL 26 MEQ/L (21-32); CHLORIDE LEVEL 105 MEQ/L (98-107); CREATININE FOR GFR 0.83 MG/DL (0.55-1.30); GLOMERULAR FILTRATION RATE > 60.0 (>60); GLUCOSE, FASTING 96 MG/DL (70-100); LIPASE 76 U/L (73-393); POTASSIUM SERUM 3.7 MEQ/L (3.5-5.1); SODIUM LEVEL 138 MEQ/L (136-145); TOTAL PROTEIN 7.6 GM/DL (6.4-8.2)
--- NOTE | 2018-07-31 00:45 | REPVR ---
EXAM: US Abdomen Limited, Right Upper Quadrant EXAM DATE/TIME: 07/30/2018 12:09 AM CLINICAL HISTORY: 22 years old, female; Pain; Abdominal pain; Epigastric; Prior surgery; Surgery date: 1-6 months; Surgery type: Cholecystectomy; Additional info: Recent michel/ruq +epigastric pain TECHNIQUE: Real-time ultrasound of the abdomen with image documentation. Examination was focused on the right upper quadrant. COMPARISON: GALLBLADDER US 06/05/2018 7:07 AM FINDINGS: Liver: Fatty infiltration of the liver. Gallbladder: Status post cholecystectomy. Small fluid collection in the gallbladder fossa measuring 2.1 x 1.4 x 1.5 cm. Common bile duct: CBD measures 3.0 mm in diameter. Pancreas: Pancreas is obscured by overlying bowel gas. Right kidney: Right kidney measures 11.0 cm in length. No right hydronephrosis. Intraperitoneal space: No free fluid. IMPRESSION: Status post cholecystectomy. Small fluid collection in the gallbladder fossa. Unknown etiology. Dilated cystic duct remnant versus abscess versus other cystic lesion. Recommend followup contrast enhanced CT. Electronically signed by: Jermain Morris On 07/31/2018 00:45:04 AM
[2018-07-31] MEDS ORDERED: ISOVUE-370 76% 100ML VIAL (Q9967) As Ordered ONE (01:12)
[2018-07-31 01:47] LABS: HCG, SERUM QUALITATIVE NEGATIVE (NEGATIVE)
--- NOTE | 2018-07-31 02:18 | REPVR ---
EXAM: CT Abdomen and Pelvis With Contrast EXAM DATE/TIME: 07/31/2018 1:02 AM CLINICAL HISTORY: 22 years old, female; Pain; Abdominal pain; Generalized; Additional info: Bile leak vs abscess gb on US TECHNIQUE: Axial computed tomography images of the abdomen and pelvis with intravenous contrast. All CT scans at this facility use at least one of these dose optimization techniques: automated exposure control; mA and/or kV adjustment per patient size (includes targeted exams where dose is matched to clinical indication); or iterative reconstruction. Coronal and sagittal reformatted images were created and reviewed. CONTRAST: 100 ml of iiso administered intravenously. COMPARISON: GALLBLADDER US 06/05/2018 7:07 AM FINDINGS: Lower thorax: Calcified granuloma in the right lower lobe of the lung. ABDOMEN: Liver: Normal. No mass. Gallbladder and bile ducts: Status post cholecystectomy. Ill-defined soft tissue density lesion in the gallbladder fossa measuring 1.7 x 1.4 cm. No biliary ductal dilatation. Pancreas: Normal. No ductal dilation. Spleen: Calcified granuloma in the spleen. No masses. Adrenals: Normal. No mass. Kidneys and ureters: Normal. No hydronephrosis. Stomach and bowel: Normal. No obstruction. No mucosal thickening. Copious stool the right colon. Negative for colonic diverticulitis. Appendix: Appendix is normal. PELVIS: Bladder: Unremarkable as visualized. Reproductive: Uterus is normal. ABDOMEN and PELVIS: Intraperitoneal space: Normal. No free air. No significant fluid collection. Bones/joints: No acute fracture. No dislocation. Soft tissues: Unremarkable. Vasculature: Normal. No abdominal aortic aneurysm. Lymph nodes: Normal. No enlarged lymph nodes. IMPRESSION: Status post cholecystectomy. Ill-defined soft tissue density lesion in the gallbladder fossa. Unknown specific etiology. Differential diagnosis includes dilated cystic duct remnant versus small biloma versus postop changes. Infection cannot be excluded. Electronically signed by: Jermain Morris On 07/31/2018 02:18:35 AM
[2018-07-31 02:44] VITALS: BP 125/76
[2018-07-31] MEDS ORDERED: PROT1TAB2 PO (02:53)
--- NOTE | 2018-07-31 09:46 | ED PDOC ---
Post-Departure Follow-Up dr arnett and prem hyde faxed formal report of ct abd/p and liver us for fu Nata Chapman MD Jul 31, 2018 09:46
== END 2018-07-31 03:27 | disposition home or self-care (01) ==
LOC: M ED 23:01
DX: R10.11 Right upper quadrant pain (principal)
CPT/HCPCS: 74177; 76705; 80048; 80076; 83690; 84703; 85025; 99284; Q9967

== ENCOUNTER → 2018-09-09 | Outpatient (CLI) | payer OTHER ==
[~2018-09-09] MED LIST changes: +PROT1TAB2 PO
--- NOTE | 2018-09-09 10:39 | REP ---
Hepatobiliary scan: History: Gallbladder calculus. Ill-defined soft tissue density in the gallbladder fossa. The patient is status post cholecystectomy. Comparison CT study July 31, 2018. Technique: 6.6 mCi of technetium 99m mebrofenin is injected and sequential anterior abdominal images are acquired. A right lateral study is acquired as well. Imaging interval is 60 minutes. Scintigraphic findings: The initial hepatocellular parenchymal uptake phase is normal and homogeneous. Subsequent images demonstrate normal washout from the liver parenchyma into the small intestine and biliary tree. The intrahepatic bile ducts are visualized at 10 and 15 minutes and the duodenum is first visualized at 15 and 20 minutes. No abnormal collection is seen. No evidence of bile leak seen. Impression: Normal hepatobiliary scan post cholecystectomy. Electronically Signed by Saurabh Craft MD 09/09/2018 12:07 P
== END ==
LOC: M RAD 08:45
PROVIDERS: ATTEND Surgery
DX: K80.61 Calculus of gallbladder and bile duct with cholecystitis, unspecified, with obstruction (principal); K80.19 Calculus of gallbladder with other cholecystitis with obstruction; Z90.49 Acquired absence of other specified parts of digestive tract
CPT/HCPCS: 78226; A9537

== ENCOUNTER → 2018-09-10 | Outpatient (CLI) | payer OTHER ==
[2018-09-10 19:48] LABS: HCG, SERUM QUALITATIVE POSITIVE (NEGATIVE)
[2018-09-10 20:07] LABS: HCG, SERUM QUANTITATIVE 134634 MIU/ML
== END ==
LOC: M LAB 19:02
PROVIDERS: ATTEND Physician Assistant Medical
DX: N91.2 Amenorrhea, unspecified (principal)

== ENCOUNTER → 2018-10-02 | Outpatient (REF) | payer OTHER ==
[~2018-10-02] MED LIST changes: +HYDR-3715 PO; -NORCOTAB PO
== END ==
LOC: M LAB REF 17:35
PROVIDERS: ATTEND Advanced Practice Midwife
DX: Z12.4 Encounter for screening for malignant neoplasm of cervix (principal); N87.0 Mild cervical dysplasia

== ENCOUNTER → 2018-10-08 | Outpatient (CLI) | payer OTHER ==
--- NOTE | 2018-10-08 17:27 | REP ---
REASON: Supervision of other normal . Multiple ultrasonographic images of the gravid uterus show a single intrauterine gestation in variable positions. Doppler interrogation of the heart shows a heart rate of 139 beats per minute. The placenta is seen to be anterior and not low lying. Evaluation of the maternal adnexal spaces showed no abnormalities. BPD 2.3 cm 13 weeks 6 days HC 8.7 cm 13 weeks 6 days AC 6.9 cm 13 weeks 3 days FL 1.3 cm 13 weeks 5 days Estimated weight is 80 grams which is at the 30th percentile for 16 week 6 day gestational age. IMPRESSION:Early OB ultrasound as described above. The fetus was too small for an anatomical screen. Electronically Signed by Gianni Tomlinson DO 10/09/2018 11:55 A
== END ==
LOC: M RAD 13:30
PROVIDERS: ATTEND Advanced Practice Midwife
DX: Z34.81 Encounter for supervision of other normal pregnancy, first trimester (principal); Z3A.13 13 weeks gestation of pregnancy

== ENCOUNTER → 2018-10-08 | Outpatient (REF) | payer OTHER | LOC: M LAB REF 18:18 | PROVIDERS: ATTEND Specialist | DX: R30.0 Dysuria (principal) ==

== ENCOUNTER → 2018-11-01 | Outpatient (CLI) | payer OTHER ==
[2018-11-01 15:37] LABS: BASO % 0.2 % (0.0-1.0); EOS # 0.1 10^3/uL (0.0-0.50); EOS % 1.2 % (0.0-3.0); HEMATOCRIT 36.2 % (36.0-47.0); LYMPH # 1.6 10^3/uL (1.5-6.5); LYMPH % 18.5 % (24.0-44.0); MEAN CORPUSCULAR HEMOGLOBIN 28.7 pg (27.0-33.0); MEAN CORPUSCULAR HGB CONC 33.1 g/dl (32.0-36.5); MEAN CORPUSCULAR VOLUME 86.6 fl (80.0-96.0); MONO # 0.4 10^3/uL (0.0-0.8); MONO % 4.5 % (0.0-5.0); NEUTROPHILS # 6.5 10^3/uL (1.8-7.7); NEUTROPHILS % 75.3 % (36.0-66.0); PLATELET COUNT, AUTOMATED 125 10^3/uL (150-450); RED BLOOD COUNT 4.18 10^6/uL (4.00-5.40); WHITE BLOOD COUNT 8.6 10^3/uL (4.0-10.0)
[2018-11-01 16:03] LABS: GLUCOSE CHALLENGE TEST 1 HOUR 138 MG/DL (LESS THAN 140)
[2018-11-01 16:26] LABS: RUBELLA IgG QUALITATIVE IMMUNE (IMMUNE)
[2018-11-01 16:56] LABS: HEPATITIS C VIRUS ABY INDEX < 0.0 INDEX (<0.8); HIV 1&2 SCREEN CENTAUR NEGATIVE (NEGATIVE)
[2018-11-01 17:00] LABS: CHLAMYDIA DNA AMPLIFICATION NEGATIVE (NEGATIVE); GC DNA AMPLIFICATION NEGATIVE (NEGATIVE)
[2018-11-01 18:42] LABS: HEMOGLOBIN A1c 4.9 %
== END ==
LOC: M LAB 13:55
PROVIDERS: ATTEND Advanced Practice Midwife
DX: Z36.89 Encounter for other specified antenatal screening (principal)

== ENCOUNTER → 2018-11-07 | Outpatient (CLI) | payer OTHER ==
--- NOTE | 2018-11-07 13:29 | REP ---
Clinical: Anatomical evaluation. Comparison: 10/08/2018 . Findings: Examination demonstrates a single live intrauterine in breech presentation. motion is identified by technologist. Placenta is noted anterior and grade grade zero without evidence for placenta previa or abruption. Amniotic fluid volume is normal. Cervix measures 3.6 cm in length and appears closed. No evidence for nuchal cord. Gestational age by LMP 18 weeks 1 day with CALEB 04/09/2019 . Gestational age by current measurements 17 weeks 5 days with CALEB an 26 19 . FHR equals 165 beats per minute. BPD 3.9 cm 17 weeks 5 days HC 14.6 cm 17 weeks 6 days AC 12.3 cm 17 weeks 6 days FL 2.5 cm 17 weeks 3 days HL 2.4 cm 17 weeks 3 days HC/AC ratio 1.20 Estimated weight 206 grams ( 33rd percentile). Anatomical assessment demonstrates normal structures including cranium, choroid plexus, cavum, lungs, stomach, cord insertion/three-vessel cord, kidneys/bladder, and lower extremities. Limited evaluation of the posterior fossa, facial features, heart/ventricular outflow tracts, diaphragm, spine, and upper extremities due to positioning. Impression: Single live intrauterine in footling breech presentation. Anatomical limitations as described above may warrant reevaluation and follow-up. Electronically Signed by Buzz Mccartney MD 11/07/2018 01:21 P
== END ==
LOC: M RAD 12:02
PROVIDERS: ATTEND Advanced Practice Midwife
DX: O32.8XX0 Maternal care for other malpresentation of fetus, not applicable or unspecified (principal); Z36.89 Encounter for other specified antenatal screening; Z3A.18 18 weeks gestation of pregnancy

== ENCOUNTER → 2018-11-19 | Outpatient (CLI) | payer OTHER | LOC: M LAB 07:53 | PROVIDERS: ATTEND Advanced Practice Midwife | DX: O99.332 Smoking (tobacco) complicating pregnancy, second trimester (principal); Z3A.00 Weeks of gestation of pregnancy not specified; F17.210 Nicotine dependence, cigarettes, uncomplicated ==

== ENCOUNTER 2018-11-30 23:34 | Outpatient (CLI) | payer OTHER ==
[2018-11-30 23:39] VITALS: BP 133/76
[2018-12-01] MEDS ORDERED: ZANTTAB PO (00:09)
[2018-12-01 00:18] LABS: BASO % 0.2 % (0.0-1.0); EOS # 0.2 10^3/uL (0.0-0.50); EOS % 1.2 % (0.0-3.0); HEMATOCRIT 34.2 % (36.0-47.0); HEMOGLOBIN 11.3 g/dl (12.0-15.5); LYMPH % 16.7 % (24.0-44.0); MEAN CORPUSCULAR HEMOGLOBIN 28.3 pg (27.0-33.0); MEAN CORPUSCULAR VOLUME 85.5 fl (80.0-96.0); MONO # 0.9 10^3/uL (0.0-0.8); NEUTROPHILS % 74.5 % (36.0-66.0); PLATELET COUNT, AUTOMATED 125 10^3/uL (150-450); WHITE BLOOD COUNT 12.1 10^3/uL (4.0-10.0)
[2018-12-01 00:42] LABS: AMPHETAMINES URINE REFLEX NEGATIVE (NEGATIVE); BARBITURATES URINE REFLEX NEGATIVE (NEGATIVE); BENZODIAZEPINES URINE REFLEX NEGATIVE (NEGATIVE); CANNABINOIDS URINE REFLEX NEGATIVE (NEGATIVE); COCAINE METABOLITE URINE REFLE NEGATIVE (NEGATIVE); METHADONE URINE REFLEX NEGATIVE (NEGATIVE); OPIATES URINE REFLEX NEGATIVE (NEGATIVE); PHENCYCLIDINE URINE REFLEX NEGATIVE (NEGATIVE)
[2018-12-01 00:43] LABS: ALBUMIN 2.6 GM/DL (3.2-5.2); ALT/SGPT 15 U/L (12-78); BILIRUBIN,TOTAL < 0.1 MG/DL (0.2-1.0); BLOOD UREA NITROGEN 10 MG/DL (7-18); CALCIUM LEVEL 8.1 MG/DL (8.5-10.1); CARBON DIOXIDE LEVEL 26 MEQ/L (21-32); CHLORIDE LEVEL 106 MEQ/L (98-107); CREATININE FOR GFR 0.57 MG/DL (0.55-1.30); GLOMERULAR FILTRATION RATE > 60.0 (>60); GLUCOSE, FASTING 88 MG/DL (70-100); LIPASE 117 U/L (73-393); POTASSIUM SERUM 4.2 MEQ/L (3.5-5.1); SODIUM LEVEL 138 MEQ/L (136-145); TOTAL PROTEIN 6.2 GM/DL (6.4-8.2)
[2018-12-01] MEDS ORDERED: PANTOPRAZOLE 20 MG TAB PO ONE (00:45)
[2018-12-01] MEDS ORDERED: ACETAMINOPHEN 500 MG TAB PO PRN (00:45)
--- NOTE | 2018-12-02 09:16 | HPE ---
DATE OF ADMISSION: 12/01/2018 23-year-old female at 21 and 5/7 gestation by LMP consistent with 13-week ultrasound. EDC 04/08/2019. There is a sudden onset of epigastric pain that started after laying down to go to bed the evening of evaluation. She felt burning in her sternum and some nausea but did not actually vomit. She tried taking ranitidine with minimal relief so she called an ambulance to come in. The patient is currently staying at a [facility] in [place]. She denies fevers. PAST MEDICAL HISTORY: Noncontributory. PAST SURGICAL HISTORY: Cholecystectomy 2014. OBSTETRICAL HISTORY: 06/2016 41 week vaginal 8 pound 9 ounce infant. ALLERGIES: None. SOCIAL HISTORY: Patient is single. She is currently staying at a [facility]. She denies alcohol or drug use. Father of the baby does not appear to be involved. PHYSICAL EXAMINATION: Blood pressure 133/76, pulse 84. No apparent distress. Head and neck exam normal. Lungs are clear. Heart regular and rhythm. Abdomen is nontender, gravid, heart tones 150. Extremities nontender. ASSESSMENT: 23-year-old at 21 and 5/7 weeks gestation with gastroesophageal reflux. PLAN: Treat with Protonix orally and check labs to rule out hepatic causes of pain. When pain resolves the patient can be discharged.
== END 2018-12-01 01:25 | disposition home or self-care (01) ==
LOC: M LDO 23:34
PROVIDERS: ATTEND Specialist
DX: O26.892 Other specified pregnancy related conditions, second trimester (principal); R10.13 Epigastric pain; Z3A.21 21 weeks gestation of pregnancy

== ENCOUNTER → 2018-12-03 | Outpatient (CLI) | payer OTHER ==
[~2018-12-03] MED LIST changes: +ZANTTAB PO
--- NOTE | 2018-12-03 16:24 | REP ---
Obstetric ultrasound for anatomy follow-up: The there is a single intrauterine gestation in a transverse lie with the head to the maternal left. Changing to a breech presentation during the exam. There is motion. The heart rate is 150 beats per minute. The placenta is anterior. There is no placenta previa or abruptio. Placenta is grade 1 maturity. Subjectively the amniotic fluid volume is normal. The cervix measures 5.1 cm length. By today's ultrasound the gestational age is 21 weeks 3 days/CALEB 04/12/2019. By the first ultrasound the gestational age is 21 weeks 6 days/CALEB 04/09/2019. weight is 472 grams/1 pound, 0 ounces. This is the 54th percentile for 21 weeks 6 days. anatomy: On the prior study was suboptimal demonstration of the intracranial posterior fossa, facial features, four-chamber view of the heart, cardiac ventricular outflow tracts, diaphragm, spine and upper lower extremities because of position. On the study today the intracranial posterior fossa, diaphragm and lower extremities are optimally demonstrated and unremarkable. There is again suboptimal demonstration of the facial features, four-chamber view of the heart and cardiac ventricular outflow tracts and spine. Additional followup study dedicated to these structures might be considered. Electronically Signed by Charles Lyn MD 12/03/2018 04:15 P
== END ==
LOC: M RAD 14:50
PROVIDERS: ATTEND Advanced Practice Midwife
DX: O99.332 Smoking (tobacco) complicating pregnancy, second trimester (principal); Z3A.21 21 weeks gestation of pregnancy

== ENCOUNTER → 2018-12-30 | Outpatient (CLI) | payer OTHER ==
[~2018-12-30] MED LIST changes: +ZANT150T40 PO; -ZANTTAB PO
--- NOTE | 2018-12-31 07:32 | REP ---
Obstetric ultrasound for follow-up of anatomy: Review of prior studies reveals that there was suboptimal demonstration of facial features, four-chamber view of the heart, cardiac ventricular outflow tracts and spine. The area the study today is for follow-up of these structures. On the study today the upper lip is adequately demonstrated. However, the facial profile is not optimally demonstrated. The four-chamber view of the heart is optimally demonstrated. The left ventricular cardiac outflow tract was optimally demonstrated. The right ventricular outflow tract is suboptimally demonstrated. The spine is optimally demonstrated. A followup study for optimal demonstration of the facial profile and cardiac right ventricular outflow tract might be considered. There is a single intrauterine gestation in a breech presentation. There is movement and cardiac activity. The heart rate is 157 beats minute. The placenta is anterior. There is no placenta previa or abruptio. Placenta is grade zero. The amniotic fluid volume subjectively is normal. The cervix measures 4.1 cm length. Gestational age by the ultrasound today is 25-week 6 days/CALEB 04/08/2019. Gestational age by the first ultrasound is 25 weeks 5 days/CALEB 04/09/2019. weight is 789 grams (1 pound, 11 ounces). This is the 33rd percentile for 25 weeks 5 days. Electronically Signed by Charles Lyn MD 12/30/2018 06:14 P
== END ==
LOC: M RAD 16:30
PROVIDERS: ATTEND Obstetrics & Gynecology
DX: Z34.82 Encounter for supervision of other normal pregnancy, second trimester (principal); Z3A.25 25 weeks gestation of pregnancy

== ENCOUNTER → 2019-01-21 | Outpatient (CLI) | payer OTHER ==
--- NOTE | 2019-01-22 06:47 | REP ---
Clinical: Anatomical evaluation. Comparison: 12/30/2018 . Findings: Examination demonstrates a single live intrauterine in oblique/cephalic with head towards the maternal left) presentation. motion is identified by technologist. Placenta is noted anterior and grade one without evidence for placenta previa or abruption. Amniotic fluid volume is normal. Cervix measures 4.6 cm in length and appears closed. No evidence for nuchal cord. Gestational age by LMP 28 weeks 6 days with CALEB 04/09/2019 . Gestational age by current measurements 29 weeks 0 days with CALEB 04/08/2019 . FHR equals 135 beats per minute. Estimated weight 1332 grams ( 48th percentile). Anatomical assessment demonstrates normal structures including cranium, cavum, cerebellum/posterior fossa, facial features, lungs, four-chamber heart/ventricular outflow tracts, diaphragm, stomach, cord insertion/three-vessel cord, kidneys/bladder, and spine. Impression: Single live intrauterine in cephalic presentation demonstrating appropriate interval growth. In conjunction with prior examination anatomical assessment is complete and normal. Electronically Signed by Buzz Mccartney MD 01/22/2019 06:39 A
== END ==
LOC: M RAD 16:33
PROVIDERS: ATTEND Advanced Practice Midwife
DX: Z34.83 Encounter for supervision of other normal pregnancy, third trimester (principal)

== ENCOUNTER → 2019-03-13 | Outpatient (REF) | payer OTHER | LOC: M LAB REF 11:37 | PROVIDERS: ATTEND Obstetrics & Gynecology | DX: Z36.85 Encounter for antenatal screening for Streptococcus B (principal) ==

== ENCOUNTER 2019-04-05 13:38 | Emergency (ER) | payer OTHER ==
[~2019-04-05] VITALS: Ht 165.1 cm; Wt 111.4 kg
[2019-04-05 14:25] LABS: BASO % 0.3 % (0.0-1.0); EOS # 0.1 10^3/uL (0.0-0.5); EOS % 0.9 % (0.0-3.0); HEMOGLOBIN 10.3 g/dl (12.0-15.5); LYMPH # 1.2 10^3/uL (1.5-5.0); LYMPH % 12.9 % (24.0-44.0); MEAN CORPUSCULAR HEMOGLOBIN 25.4 pg (27.0-33.0); MEAN CORPUSCULAR HGB CONC 31.2 g/dl (32.0-36.5); MEAN CORPUSCULAR VOLUME 81.3 fl (80.0-96.0); MONO # 0.6 10^3/uL (0.0-0.8); MONO % 7.1 % (0.0-5.0); NEUTROPHILS # 6.9 10^3/uL (1.5-8.5); NEUTROPHILS % 77.7 % (36.0-66.0); RED BLOOD COUNT 4.06 10^6/uL (4.00-5.40); WHITE BLOOD COUNT 8.9 10^3/uL (4.0-10.0)
[2019-04-05 15:04] LABS: ALBUMIN 2.1 GM/DL (3.2-5.2); ALT/SGPT 15 U/L (12-78); BILIRUBIN,DIRECT < 0.1 MG/DL (0.0-0.2); BILIRUBIN,TOTAL 0.2 MG/DL (0.2-1.0); BLOOD UREA NITROGEN 7 MG/DL (7-18); CALCIUM LEVEL 8.2 MG/DL (8.5-10.1); CARBON DIOXIDE LEVEL 23 MEQ/L (21-32); CHLORIDE LEVEL 106 MEQ/L (98-107); CREATININE FOR GFR 0.54 MG/DL (0.55-1.30); FREE T4 0.93 NG/DL (0.76-1.46); GLOMERULAR FILTRATION RATE > 60.0 (>60); GLUCOSE, FASTING 88 MG/DL (70-100); POTASSIUM SERUM 3.8 MEQ/L (3.5-5.1); SODIUM LEVEL 138 MEQ/L (136-145); TOTAL PROTEIN 5.9 GM/DL (6.4-8.2)
[2019-04-05 15:09] LABS: PLATELET COUNT, AUTOMATED 99 10^3/uL (150-450)
--- NOTE | 2019-04-05 15:58 | REP ---
Right upper extremity duplex venous ultrasound: History: Right upper extremity edema. Rule out venous thrombosis. Findings: The right internal jugular, axillary, brachial, basilic, and cephalic veins are anechoic and compressible in the left upper extremity. Color flow imaging is homogeneous. Spectral Doppler interrogation is unremarkable. There is no evidence of right upper extremity venous thrombosis. Impression: Negative right upper extremity duplex venous ultrasound. No evidence of venous thrombosis. Electronically Signed by Saurabh Craft MD 04/05/2019 03:50 P
--- NOTE | 2019-04-05 15:59 | REP ---
Duplex extremity venous ultrasound: Right lower extremity. History: Right lower extremity edema. Rule out DVT. Findings: The deep veins are anechoic and fully compressible from the groin to the popliteal fossa in the right lower extremity. Color flow imaging is homogeneous. Spectral Doppler interrogation demonstrates intact respiratory variation in flow and normal manual augmentation of flow. There is no evidence of deep vein thrombosis. Impression: Negative right lower extremity duplex venous ultrasound. No evidence of deep vein thrombosis. Electronically Signed by Saurabh Craft MD 04/05/2019 03:51 P
[2019-04-05 16:01] VITALS: BP 108/57
== END 2019-04-05 16:07 | disposition home or self-care (01) ==
LOC: M ED 13:38 → EDBD 13:38 → M ED 16:07
DX: R60.9 Edema, unspecified (principal); F17.200 Nicotine dependence, unspecified, uncomplicated; J30.2 Other seasonal allergic rhinitis; Z91.018 Allergy to other foods

== ENCOUNTER 2019-04-13 09:37 | Inpatient (IN) | payer OTHER ==
[2019-04-13] VITALS (26 sets, daily range): BP systolic 108–139; BP diastolic 55–76
[~2019-04-13] VITALS: Ht 162.6 cm; Wt 110.7 kg
[2019-04-13 10:40] LABS: HEMATOCRIT 32.9 % (36.0-47.0); HEMOGLOBIN 10.1 g/dl (12.0-15.5); MEAN CORPUSCULAR HEMOGLOBIN 24.8 pg (27.0-33.0); MEAN CORPUSCULAR HGB CONC 30.7 g/dl (32.0-36.5); MEAN CORPUSCULAR VOLUME 80.8 fl (80.0-96.0); PLATELET COUNT, AUTOMATED 122 10^3/uL (150-450); RED BLOOD COUNT 4.07 10^6/uL (4.00-5.40)
[2019-04-13] MEDS: miSOPROStol 50 MCG 1/2 TAB (S0191) PO SCH ×2 (11:18→15:31)
--- NOTE | 2019-04-13 16:01 | HPE ---
DATE OF ADMISSION: 04/13/2019 REASON FOR ADMISSION: Induction of labor. HISTORY OF PRESENT ILLNESS: This patient is a 23-year-old 2, para 1, who presents at 40 weeks 5 days estimated gestational age by last menstrual period, confirmed by first trimester ultrasound, for induction of labor . Her course has been unremarkable. She initiated care in her first trimester and has been appropriate throughout. PAST MEDICAL HISTORY: History of depression and anxiety. PAST SURGICAL HISTORY: She has had laparoscopic cholecystectomy. OBSTETRICAL HISTORY: She is a 2, para 1. She has had one term vaginal delivery proven to 8 pounds 9 ounces. MEDICATIONS: Includes: Zantac. ALLERGIES: No known drug allergies. Allergy to SHRIMP. SOCIAL HISTORY: She is a smoker. Denies any alcohol or drug use during her . PHYSICAL EXAMINATION: VITAL SIGNS: Stable. She is afebrile. GENERAL APPEARANCE: Well appearing, no acute distress. LUNGS: Clear to auscultation bilaterally. CARDIOVASCULAR: Heart regular rate and rhythm. She has category one heart tracing. CERVICAL EXAM: She is 2 cm dilated, 50% effaced, -3 station. LABORATORY DATA: Blood type is A positive, antibody screen is negative. Rubella is immune. Rapid plasma reagin (RPR) is nonreactive. Hepatitis surface antigen is negative. HIV is negative. Hepatitis C is nonreactive. Chlamydia and gonorrhea screens are negative. She had a normal hour Glucola. She is group B Streptococcus (GBS) negative. ASSESSMENT: 1. Miss Walker is a 23-year-old 2, para 1, at 40 weeks 5 days estimated gestational age here for induction of labor. 2. Reassuring status. PLAN: 1. Admit to labor and delivery, complete blood count (CBC), rapid plasma reagin (RPR), type and screen. 2. The patient has been thoroughly counseled in regard to induction of labor. I discussed the medication as well as procedure performed in the labor and delivery room. All questions have been answered. She desires to proceed with admission. She has also verbally consented for emergency surgery, blood products and anesthesia.
[2019-04-13] MEDS ORDERED: FENTANYL 2MCG/ML ROPIVACAINE 0.2% IN 0.9% NACL 100ML IVBAG As Ordered ONE (19:19)
[2019-04-13] MEDS ORDERED: LR 1,000 ML IV SCH ×2 (19:38→19:45)
[2019-04-13] MEDS ORDERED: OXYTOCIN DRIP 30 UNITS in IV 1 EA IV SCH ×2 (19:45→22:41)
[2019-04-13] MEDS ORDERED: diphenhydrAMINE INJ 50MG/ML VIAL (J1200) IV PRN (21:00)
[2019-04-13] MEDS ORDERED: EPIDURAL/PCA KEYS XX PRN (21:00)
[2019-04-13] MEDS ORDERED: NALOXONE INJ 0.4 MG/1 ML VIAL (J2310) IV PRN (21:00)
[2019-04-13] MEDS ORDERED: EPIDURAL COMMENT XX SCH (21:00)
[2019-04-13] MEDS ORDERED: FENTANYL/ROPIVACAINE/NACL BAG 100 ML EPIDURAL SCH (21:00)
[2019-04-13] MEDS ORDERED: ONDANSETRON 4MG/2ML VIAL (J2405) IV PRN (21:00)
[2019-04-13] MEDS ORDERED: REFRIGERATOR IV KEYS XX PRN (21:00)
[2019-04-13] MEDS ORDERED: ePHEDrine SULFATE 25 MG/5 ML(5MG/ML) SYRINGE IV PRN (21:00)
[2019-04-13] MEDS ORDERED: ACETAMINOPHEN TAB 650MG DOSE (2X325MG) PO PRN (22:45)
[2019-04-13] MEDS ORDERED: IBUPROFEN 600 MG TAB PO PRN (22:45)
[2019-04-13] MEDS ORDERED: ACETAMINOPHEN 500 MG TAB PO PRN (22:45)
[2019-04-13] MEDS ORDERED: DIBUCAINE 1% OINTMENT 30GM TOP PRN (22:45)
[2019-04-13] MEDS ORDERED: RHOGAM 300 MCG (1500 IU) INJ (J2790) IM SCH (22:45)
[2019-04-13] MEDS ORDERED: MEASLES,MUMPS,RUBELLA VACCINE INJ (MMR-II) (90707) SC SCH (22:45)
[2019-04-13] MEDS ORDERED: MOM 30ML SUSPENSION UDC PO PRN (22:45)
[2019-04-13] MEDS ORDERED: ANUSOL HC CREAM 30GM TOP PRN (22:45)
[2019-04-13] MEDS ORDERED: DOCUSATE SODIUM 100 MG CAP PO PRN (22:45)
[2019-04-13] MEDS ORDERED: METHYLERGONOVINE MALEATE 0.2 MG TAB PO PRN (22:45)
[2019-04-14 00:19] VITALS: BP 123/57
[2019-04-14] MEDS: IBUPROFEN 800 MG TAB PO PRN (03:59)
--- NOTE | 2019-04-14 05:14 | DN ---
DATE OF DELIVERY: 05/14/2019 TIME OF : 2222. GENDER: Female, Apgars 8 and 9. WEIGHT: 3730 grams, 8 pounds 4 ounces. LACERATION: First-degree midline laceration with the right labial laceration. ANESTHESIA: Epidural. COUNTS: Five laparotomy sponges accounted for prior to and after delivery, one sharp removed from delivery field. DELIVERY NOTE: On April 13, 2019 at 2223 Ms. Walker a 23-year-old 2, now para 2 had a spontaneous vaginal delivery of a live born female , Apgars 8 and 9, weight was 8 pounds, 4 ounces 3730 grams. Head was delivered occiput anterior (OA), followed by delivery of shoulders and corpus. Infant was then handed to mom with a good cry. The cord was clamped times two and was cut by the support person under my direction. Placenta was then drained and delivered grossly intact. A premixed bag of 500 mL of normal saline with 30 units of units of Pitocin was bolused along with uterine massage, the uterus was firm. On inspection, there was a first degree midline laceration and a right labial laceration which was repaired with #3-0 Vicryl Rapide. On reinspection, the cervix and perineum were grossly intact and hemostatic. Mom and baby to recovery in stable condition.
[2019-04-14 05:44] VITALS: BP 120/66
[2019-04-14] MEDS ORDERED: PRENATAL VITAMINS CHEWABLE TABLET PO SCH (09:00)
[2019-04-14 17:52] VITALS: BP 111/54
[2019-04-15] MEDS: IBUPROFEN 800 MG TAB PO PRN (02:55)
[2019-04-15 06:07] VITALS: BP 122/66
[2019-04-15] MEDS ORDERED: ACET-683 PO (07:01)
[2019-04-15] MEDS ORDERED: IBUP80TA PO (07:01)
== END 2019-04-15 10:15 | disposition home or self-care (01) | DRG 560 ==
LOC: M LDI 09:37 → M OBS 04-14 00:08
PROVIDERS: ADMIT Obstetrics & Gynecology; ATTEND Obstetrics & Gynecology
PROC: 10E0XZZ Delivery of Products of Conception, External Approach (ICD-10-PCS; principal; 2019-04-13)
PROC: 3E0P7GC Introduction of Other Therapeutic Substance into Female Reproductive, Via Natural or Artificial Opening (ICD-10-PCS; 2019-04-13)
PROC: 0HQ9XZZ Repair Perineum Skin, External Approach (ICD-10-PCS; 2019-04-13)
DX: O48.0 Post-term pregnancy (principal); F17.200 Nicotine dependence, unspecified, uncomplicated; Z3A.40 40 weeks gestation of pregnancy; O99.334 Smoking (tobacco) complicating childbirth; O70.0 First degree perineal laceration during delivery; Z37.0 Single live birth

== ENCOUNTER → 2019-11-19 | Outpatient (REF) | payer OTHER ==
[~2019-11-19] MED LIST changes: +ACET-683 PO; +IBUP80TA PO
[2019-11-19 17:41] LABS: HEMATOCRIT 38.5 % (36.0-47.0); HEMOGLOBIN 12.6 g/dl (12.0-15.5); MEAN CORPUSCULAR HEMOGLOBIN 26.1 pg (27.0-33.0); MEAN CORPUSCULAR HGB CONC 32.7 g/dl (32.0-36.5); MEAN CORPUSCULAR VOLUME 79.9 fl (80.0-96.0); PLATELET COUNT, AUTOMATED 147 10^3/uL (150-450); RED BLOOD COUNT 4.82 10^6/uL (4.00-5.40)
[2019-11-19 18:04] LABS: FREE T4 1.16 NG/DL (0.76-1.46); GLUCOSE CHALLENGE TEST 1 HOUR 109 MG/DL (LESS THAN 140)
[2019-11-19 18:14] LABS: HEMOGLOBIN A1c 5.4 %
[2019-11-19 20:34] LABS: CHLAMYDIA DNA AMPLIFICATION NEGATIVE (NEGATIVE); GC DNA AMPLIFICATION NEGATIVE (NEGATIVE)
[2019-11-21 09:24] LABS: HEPATITIS B SURFACE ANTIGEN NEGATIVE (NEGATIVE)
[2019-11-21 09:51] LABS: HEPATITIS C VIRUS ABY INDEX 0.2 INDEX (<0.8)
[2019-11-21 09:52] LABS: HIV 1&2 SCREEN CENTAUR NEGATIVE (NEGATIVE)
== END ==
LOC: M PLALAB 13:58
PROVIDERS: ATTEND Advanced Practice Midwife
DX: O99.211 Obesity complicating pregnancy, first trimester (principal)

== ENCOUNTER → 2020-01-12 | Outpatient (CLI) | payer OTHER ==
--- NOTE | 2020-03-05 13:38 | REP ---
OBSTETRIC ULTRASOUND FOR ANATOMY DATE: 01/12/2020. NOTE: Delay in reporting results from hospital computer system malfunction as a result of a malware attack. FINDINGS: There is a single intrauterine gestation in a transverse lie with the head in the maternal left. The placenta is anterior, grade 0, without previa and without abruptio. The heart rate is 143 beats per minute. Subjectively, the amniotic fluid volume is normal. Cervix measures 3.3 cm in length. BIOMETRY: BPD: 4.3 mm; 19 weeks, 0 days. HC: 157 mm; 18 weeks, 5 days. AC: 134 mm: 19 weeks, 0 days. Femur length: 29 mm: 19 weeks, 0 days. Humeral length: 28 mm; 19 weeks, 0 days. Cerebellar diameter: 18 mm; 19 weeks, 1 day. The composite gestational age is not computed by the computer. The following anatomic structures are unable to be satisfactory visualized: Four-chamber view of the heart, cardiac right and left ventricular outflow tracts, face and upper lip. A followup study dedicated to these structures might be considered. The following anatomic structures are identified and are unremarkable: Cisterna magna, cavum septum pellucidum, thalami, spine, stomach, kidneys, bladder, three-vessel cord, cord insertion, and upper and lower extremities. CALEB: 06/05/2020 for 19 weeks, 2 days gestational age. MTDD
== END ==
LOC: M WHC 16:56
PROVIDERS: ATTEND Specialist
DX: Z34.82 Encounter for supervision of other normal pregnancy, second trimester (principal); Z3A.29 29 weeks gestation of pregnancy

== ENCOUNTER → 2020-02-17 | Outpatient (CLI) | payer OTHER ==
--- NOTE | 2020-03-17 08:04 | REP ---
FOLLOW-UP OBSTETRICAL ULTRASOUND CLINICAL: Follow-up anatomical assessment. COMPARISON: 01/12/2020. FINDINGS: Ultrasound examination demonstrates single live intrauterine in transverse lie with head to maternal left. motion identified by technologist. Placenta anterior and grade 0 without evidence for placenta previa or abruption. Amniotic fluid volume is normal. Cervix measures 3.3 cm in length and appears closed. Gestational age by current measurements 24 weeks 5 days. Estimated weight 701 grams (43rd percentile). heart rate equals 140 beats per minute. Anatomical assessment demonstrates normal four chamber heart/cardiac ventricular outflow tracts, cord insertion, and facial features. IMPRESSION: Single live intrauterine in transverse lie demonstrating appropriate estimated weight. In conjunction with prior examination, anatomical assessment is complete and normal. MTDD
== END ==
LOC: M WHC 14:01
PROVIDERS: ATTEND Obstetrics & Gynecology
DX: Z34.82 Encounter for supervision of other normal pregnancy, second trimester (principal)

== ENCOUNTER → 2020-04-01 | Outpatient (REF) | payer OTHER ==
[2020-04-01 17:52] LABS: HEMATOCRIT 38.2 % (36.0-47.0); HEMOGLOBIN 11.9 g/dl (12.0-15.5); MEAN CORPUSCULAR HEMOGLOBIN 26.5 pg (27.0-33.0); MEAN CORPUSCULAR HGB CONC 31.2 g/dl (32.0-36.5); MEAN CORPUSCULAR VOLUME 85.1 fl (80.0-96.0); PLATELET COUNT, AUTOMATED 112 10^3/uL (150-450); RED BLOOD COUNT 4.49 10^6/uL (4.00-5.40); WHITE BLOOD COUNT 11.2 10^3/uL (4.0-10.0)
== END ==
LOC: M PLALAB 13:35
PROVIDERS: ATTEND Obstetrics & Gynecology
DX: O99.213 Obesity complicating pregnancy, third trimester (principal)

== ENCOUNTER → 2020-04-29 | Outpatient (CLI) | payer OTHER ==
--- NOTE | 2020-04-29 18:21 | REP ---
INDICATION: DATING/SIZE/ GROWTH/EFW/LIVIER. COMPARISON: None. FINDINGS: Scanning demonstrates a viable single intrauterine gestation in a cephalic lie. motion is observed and heart rate is recorded at beats per minute. An anterior, grade II placenta is seen without evidence of previa. Amniotic fluid is subjectively normal. The LIVIER is 19.2 within normal range 8-24.9. Closed cervical length is measured at 3.4 cm transabdominally. No extrauterine abnormality is observed. There has been appropriate interval growth. The anatomy screen has previously been completed.. Biometry chart: BPD 8.7 cm; 35 weeks 1 days Head circumference 32.1 cm; 36 weeks 1 days Abdominal circumference 30.8 cm; 34 weeks 6 days Femur length 6.5 cm; 33 weeks 3 days Humeral length 5.8 cm; 33 weeks 3 days HC/AC ratio normal 1.04 Cephalic index normal 0.75 Estimated weight 2463 grams, 5 pounds 7 ounces, 41st percentile for 34 weeks 5 days. IMPRESSION: Viable single intrauterine gestation at 34 weeks 4 days by today's composite sonographic criteria. Expected gestational age estimate based on prior sonography is 34 weeks is 5 days. CALEB by prior sonography 06/05/2020. No anomaly as previously noted on anatomy screen <Electronically signed by David Hendricks > 04/29/20 [id number]
== END ==
LOC: M WHC 13:46
PROVIDERS: ATTEND Advanced Practice Midwife
DX: O26.843 Uterine size-date discrepancy, third trimester (principal); Z3A.34 34 weeks gestation of pregnancy

== ENCOUNTER → 2020-05-04 | Outpatient (CLI) | payer OTHER | LOC: M LAB 07:57 | PROVIDERS: ATTEND Advanced Practice Midwife | DX: O99.810 Abnormal glucose complicating pregnancy (principal); Z3A.00 Weeks of gestation of pregnancy not specified ==

== ENCOUNTER → 2020-05-12 | Outpatient (REF) | payer OTHER | LOC: M SFHCWAGY 17:07 | PROVIDERS: ATTEND Obstetrics & Gynecology | DX: Z34.93 Encounter for supervision of normal pregnancy, unspecified, third trimester (principal); Z3A.36 36 weeks gestation of pregnancy ==

== ENCOUNTER 2020-06-03 08:11 | Inpatient (IN) | payer OTHER ==
[~2020-06-03] VITALS: Ht 162.6 cm; Wt 114.9 kg
[2020-06-03] VITALS (35 sets, daily range): BP systolic 90–132; BP diastolic 45–72
[2020-06-03] MEDS ORDERED: PRENTAB9 PO (08:31)
[2020-06-03] MEDS ORDERED: LACTATED RINGER'S 1000 ML IV STA (08:37)
[2020-06-03 09:16] LABS: HEMATOCRIT 36.7 % (36.0-47.0); HEMOGLOBIN 11.2 g/dl (12.0-15.5); MEAN CORPUSCULAR HEMOGLOBIN 24.9 pg (27.0-33.0); MEAN CORPUSCULAR HGB CONC 30.5 g/dl (32.0-36.5); MEAN CORPUSCULAR VOLUME 81.7 fl (80.0-96.0); PLATELET COUNT, AUTOMATED 125 10^3/uL (150-450); RED BLOOD COUNT 4.49 10^6/uL (4.00-5.40); WHITE BLOOD COUNT 9.8 10^3/uL (4.0-10.0)
[2020-06-03] MEDS ORDERED: miSOPROStol 50MCG 1/2 TABLET PV ONE (10:15)
--- NOTE | 2020-06-03 11:31 | HPEPDOC ---
Obstetrical History & Physical General Date of Admission Jun 03, 2020 at 08:11 History of Present Illness Nedra is a 24yo with SIUP at 39w5d by 9wk u/s presenting for scheduled elective induction. No regular ctx, no LOF, no vaginal bleeding. Good movement. No f/c/n/v/CP/SOB. Chief Complaint: Induction of labor Information Provided By: Patient Care Care: Good Care Dating Final EDC by: 1st trimester (US) Antepartum Course Diagnos(e)s Short inter- interval (last delivery 04/13/2019), tobacco use, morbid obesity Past Medical History Past Obstetrical History : Past Obstetrical History: Multigravida (06/18/16 41wk 8lb9oz M, 04/13/19 40w5d 8lb9oz F) Past Medical History Medical History Morbid obesity, tobacco use Surgical History: Gallbladder Family History Significant Family History: No pertinent family hx Social History Marital Status: Family situation: Spouse/partner home Psychosocial History: No pertinent psych hx * Smoker: current smoker Alcohol: Denies Drugs: denies Imunizations Tdap status: declined Allergies Coded Allergies: Shrimp (Verified Allergy, Severe, throat closes can't breathe, 04/13/19) SEASONAL ALLERGIES (Verified Allergy, Unknown, 07/10/18) Medications Scheduled No.137/Iron/Folic Acd ( Vitamin Tablet) 1 Each Tablet, 1 TAB PO DAILY Physical Examination Physical Examination GENERAL: Alert and oriented times three. ABDOMEN: Gravid and non-tender to touch. FETUS: Is vertex (VTX) by sterile vaginal examination (SVE) EXTREMITIES: No edema of BLE Vital Signs/I&O Vital Signs Date Time Temp Pulse Resp B/P (MAP) Pulse Ox O2 Delivery O2 Flow Rate FiO2 06/03/20 08:27 97.0 89 16 115/68 (84) Laboratory Data 24[facility] Laboratory Tests 2 06/03/20 08:26: Serology Scanned Report Hepatitis B Testing 06/03/20 09:00: Nucleated Red Blood Cells % (auto) 0.0, Syphilis Serology NONREACTIVE CBC/BMP Laboratory Tests 06/03/20 09:00 Pertinent Laboratoy Data Blood Type: A+ RBC Antibody Screen: Negative HIV: Negative Hepatitis B: Negative Hepatitis C: Negative Rapid Plasma Reagin: Nonreactive Rubella: Immune Chlamydia/Gonorrhea: Negative Group B Streptococcus: Negative Glucose Tolerance Test: 133 (3hr 93/163/147/131) Anatomy Ultrasound Ultrasound Date: Feb 17, 2020 Placenta Location: Anterior Normal Anatomy: Yes Placenta Previa: No Other Ultrasounds 04/29 GS 41%ile at 34wk 2463g Steroid Therapy Steroid Therapy: No Vaginal Examination Dilation: 3 cm Effacement: 50% Station: -2 Cervical Consistency: Medium Cervical Position: Anterior Presentation: Cephalic presentation Assessment Variability: Moderate Accelerations: Positive Decelerations: None Tocometer Contractions: Yes Frequency: irregular Assessment/Plan Assessment Nedra is a 24yo with SIUP at 39w5d by 9wk u/s presenting for scheduled elective induction. Vitals wnl, exam benign. Reassuring status, cephalic by SCE (2-3/50/-2). Gracia cervical bulb placed with 40cc NS and 50mcg PV cytotec. PMhx/PNC significant for: Short inter- interval (last delivery 04/13/2019), tobacco use, morbid obesity Plan Admit and orient. Treasurer and consent. Diet: regular for lunch then clear liquids Group B Streptococcus (GBS) negative Labs and intravenous (IV) per unit protocol. Counseled on gracia bulb, cytotec, pitocin and induction of labor (IOL). Lactated Ringers (LR): Bolus 800 mL, then at 125 mL/hr. Anticipate normal spontaneous delivery () Candidate for epidural in active labor if desired Abigail Hanna MD Jun 03, 2020 11:31
[2020-06-03] MEDS ORDERED: OXYTOCIN DRIP 30 UNITS in IV 1 EA IV SCH (14:30)
[2020-06-03] MEDS ORDERED: OXYTOCIN 30 UNITS IN 0.9% NaCl 500ML IV BAG (J2590) As Ordered ONE (14:32)
[2020-06-03] MEDS: LR 1,000 ML IV SCH ×2 (14:57→18:39)
[2020-06-03] MEDS ORDERED: FENTANYL 2MCG/ML ROPIVACAINE 0.2% IN 0.9% NACL 100ML IVBAG As Ordered ONE (16:29)
--- NOTE | 2020-06-03 18:14 | IPNPDOC ---
Text Note Date of Service The patient was seen on 06/03/20. NOTE Intrapartum Note Nedra is doing well, has epidural and now comfortable. Pitocin titrating up per protocol. Vitals wnl, afebrile Cat I FHRT with bl 120, +accels, -decels, mod barbara Ctx q2-3min SCE: 75/-2, AROM performed with clear fluid noted, well tolerated Plan to continue to titrate pitocin to adequate ctx Continue to closely monitor Safe to proceed Abigail Hanna MD VS,Denise, I+O VS, Denise I+O Laboratory Tests 06/03/20 09:00 Vital Signs Date Time Temp Pulse Resp B/P (MAP) Pulse Ox O2 Delivery O2 Flow Rate FiO2 06/03/20 17:37 83 115/67 (83) 06/03/20 15:23 97.8 Abigail Gordon MD Jun 03, 2020 18:14
[2020-06-03] MEDS ORDERED: diphenhydrAMINE 50MG/ML VIAL (J1200) IV PRN ×3 (18:45→22:45)
[2020-06-03] MEDS ORDERED: EPIDURAL/PCA KEYS XX PRN (18:45)
[2020-06-03] MEDS ORDERED: EPIDURAL COMMENT XX SCH (18:45)
[2020-06-03] MEDS ORDERED: LACTATED RINGER'S 1000 ML IV PRN (18:45)
[2020-06-03] MEDS ORDERED: NALOXONE INJ 0.4MG/1ML VIAL (J2310 PER 1MG) IV PRN ×3 (18:45→21:10)
[2020-06-03] MEDS ORDERED: FENTANYL/ROPIVACAINE/NACL BAG 100 ML EPIDURAL SCH (18:45)
[2020-06-03] MEDS ORDERED: ONDANSETRON 4MG/2ML VIAL IV PRN ×3 (18:45→22:45)
[2020-06-03] MEDS ORDERED: REFRIGERATOR IV KEYS XX PRN (18:45)
[2020-06-03] MEDS: ePHEDrine SULFATE 25 MG/5 ML(5MG/ML) SYRINGE IV PRN ×3 (19:09→20:14)
--- NOTE | 2020-06-03 19:43 | IPNPDOC ---
Text Note Date of Service The patient was seen on 06/03/20. NOTE Intrapartum Note Pt doing well, had epidural (vs intrathecal?) topped off then had some low bp's, given 2 doses of ephedrine. Cat I FHRT +accels -decels mod barbara [place]: ctx q2-3min SCE: 80/-2, but still posterior Will continue to go up on pitocin, titrate to adequate ctx Continue to closely monitor Safe to proceed Abigail Hanna MD VSDenise I+O VSDenise I+O Laboratory Tests 06/03/20 09:00 Vital Signs Date Time Temp Pulse Resp B/P (MAP) Pulse Ox O2 Delivery O2 Flow Rate FiO2 06/03/20 18:50 62 111/56 (74) 06/03/20 18:06 97.5 16 Abigail Hanna MD Jun 03, 2020 19:43
[2020-06-03] MEDS ORDERED: ceFAZolin 2 GM/D5W 50 ML IV BAG (J0690 PER 500MG) As Ordered ONE (20:58)
[2020-06-03] MEDS ORDERED: BICITRA 30ML SOLN UDC As Ordered ONE (20:58)
[2020-06-03] MEDS ORDERED: OXYTOCIN INJ 10 UNITS/ML VIAL (J2590) As Ordered ONE ×3 (21:03→21:46)
[2020-06-03] MEDS ORDERED: MIDAZOLAM INJ 2MG/2ML VIAL (J2250 PER 1MG) As Ordered ONE (21:09)
[2020-06-03] MEDS ORDERED: NALBUPHINE HCL 10 MG/ML AMP (J2300) IV PRN (21:10)
[2020-06-03] MEDS ORDERED: MORPHINE PRES-FREE INJ 10 MG/10 ML VIAL (J2274) As Ordered ONE (21:10)
[2020-06-03] MEDS ORDERED: ONDANSETRON 4MG/2ML VIAL As Ordered ONE (21:10)
[2020-06-03] MEDS ORDERED: METOCLOPRAMIDE INJ 10MG/2ML VIAL (J2765 PER 1) IV PRN (21:10)
[2020-06-03 21:26] LABS: CORD GAS ABE A -4.2; CORD GAS HCO3 A 24.2 MEQ/L; CORD GAS HCO3 V 23.4 MEQ/L; CORD GAS O2 SAT A 38.1 %; CORD GAS O2 SAT V 71.2 %; CORD GAS PCO2 A 58.2 mmHg; CORD GAS PCO2 V 46.9 mmHg; CORD GAS PH A 7.237 UNITS; CORD GAS PH V 7.316 UNITS; CORD GAS PO2 A 18.1 mmHg; CORD GAS PO2 V 29.6 mmHg; CORD GAS SBC A 19.7 MEQ/L; CORD GAS SBC V 21.3 MEQ/L; CORD GAS TCO2 V 24.8 MEQ/L
[2020-06-03] MEDS ORDERED: propofoL 200 MG/20 ML VIAL As Ordered ONE (21:26)
[2020-06-03] MEDS ORDERED: AZITHROMYCIN INJ 500 MG, VIAL MATE ADAPTER 1 EACH in D5W 250 ML IV ONE (21:45)
[2020-06-03] MEDS ORDERED: fentaNYL 100 MCG/2 ML INJECTION (J3010) As Ordered ONE ×2 (21:49→22:45)
[2020-06-03] MEDS ORDERED: LIDOCAINE PRES-FREE 2% 10ML AMP As Ordered ONE (21:50)
[2020-06-03] MEDS ORDERED: MEPERIDINE INJ 25 MG/ML VIAL (J2175) IV PRN (22:45)
[2020-06-03] MEDS ORDERED: oxyCODONE 5MG TAB PO PRN (22:45)
[2020-06-03] MEDS ORDERED: HYDROMORPHONE HCL 0.5 MG/ 0.5 ML SYRINGE (J1170 PER 1) IV PRN (22:45)
--- NOTE | 2020-06-03 22:48 | REPVR ---
PROCEDURE INFORMATION: Exam: XR Abdomen, 1 View Exam date and time: 06/03/2020 10:08 PM Age: 24 years old Clinical indication: Screening exam; Post surgical status; Stat TECHNIQUE: Imaging protocol: XR of the abdomen. Views: Frontal supine view of the abdomen. 1 View. COMPARISON: CT ABD/PEL W/IV CONTRAST ONLY 07/31/2018 1:46 AM FINDINGS: Gastrointestinal tract: Normal. No bowel dilation. Bones/joints: There is 2.5 cm of diastasis of the pubic symphysis. There may be mild right SI joint diastasis. Left SI joint alignment appears normal but the SI joints are suboptimally evaluated. No acute fracture is seen. Normal alignment in the hips. Soft tissues: No radiopaque foreign bodies are seen. IMPRESSION: 1. 2.5 cm of diastasis of the pubic symphysis. Possible mild right SI joint diastasis. 2. No foreign bodies are seen. Electronically signed by: Reynold Ernst On 06/03/2020 22:48:29 PM
[2020-06-03] MEDS: fentaNYL 100 MCG/2 ML INJECTION (J3010) IV PRN ×2 (22:52→23:31)
[2020-06-03] MEDS ORDERED: MEASLES,MUMPS,RUBELLA VACCINE INJ (MMR-II) (90707) SC SCH (23:00)
[2020-06-03] MEDS ORDERED: RHOGAM 300 MCG (1500 IU) INJ (J2790) IM SCH (23:00)
[2020-06-03] MEDS ORDERED: KETOROLAC 30 MG/ML 1ML VIAL As Ordered ONE (23:35)
[2020-06-03] MEDS: KETOROLAC 30 MG/ML 1ML VIAL IV SCH (23:37)
[2020-06-04] VITALS (8 sets, daily range): BP systolic 115–143; BP diastolic 56–71
[2020-06-04] MEDS: LR 1,000 ML IV SCH ×3 (00:30→14:20)
--- NOTE | 2020-06-04 04:42 | DNPDOC ---
[facility] Delivery Note Delivery Note DATE OF DELIVERY: 06/03/2020 PREDELIVERY DIAGNOSIS: 39w5d elective IOL Development of NRFHT with persistent bradycardia POST DELIVERY DIAGNOSIS: Delivered Asynclitic presentation PROCEDURE: emergent primary low transverse section JAVA DEVELOPER WITH SECURITY CLEARANCE: Dr. Abigail Hanna MD ANESTHESIA: epidural ESTIMATED BLOOD LOSS: 700 mL. FINDINGS: 8 pound 11 ounce (3940g) male infant, Score 9/9. Cord gases: pHa 7.237 BE -4.2, pHv 7.316 BE -3 DELIVERY SUMMARY: Nedra is a 24yo [id number] s/p uncomplicated emergent PLTCS at 40w5d when undergoing elective IOL for development of NRFHT with persistent bradycardia perhaps related to very asynclitic presentation. She was verbally consented for the procedure as we actively moved to the OR. See dictated op report for further details. MD Jacques Hyde Katrina D MD Jun 04, 2020 04:42
[2020-06-04] MEDS: KETOROLAC 30 MG/ML 1ML VIAL IV SCH ×3 (06:07→17:20)
[2020-06-04] MEDS ORDERED: LR 1,000 ML IV ONE (06:30)
--- NOTE | 2020-06-04 06:44 | IPNPDOC ---
Progress Note Date of Service: Jun 04, 2020 Day#: 1 Progress Note PPD/POD 1 SUBJECT: Nedra is a 24yo [id number] s/p uncomplicated emergent PLTCS for persistent bradycardia when undergoing elective IOL at 39w5d, doing well /post-op day # 1. She has ambulated once, gracia in place with tea colored urine and tolerating clear liquids so far. Breast feeding without issue. Reports lochia is like a normal period. No f/c/n/v/CP/SOB. OBJECTIVE: VITAL SIGNS: Within normal limits, afebrile. Alert and oriented times three. Abdomen: Obese. Fundus firm at U-2. Soft, appropriately tender to palpation with no rebound/guarding. Pfannenstiel incision covered by dry, clean optifoam dressing which overlies steri strips Extremities: SCDs on and functioning ASSESSMENT: Nedra is a 24yo [id number] s/p uncomplicated emergent PLTCS for persistent bradycardia when undergoing elective IOL at 39w5d, doing well /post-op day # 1. Vitals within normal limits, afebrile, hemod ynamically stable with no evidence of infection. PLAN: 1. Routine post-op/post- care 2. 700ml IV LR bolus now then continue 125ml/hr and increase oral hydration 3. Remove gracia at noon today 4. Toradol and percocet (then ibuprofen and percocet) 5. Encourage breast feeding and ambulation. 6. Desires Nexplanon for contraception 7. SCDs when in bed, prophylactic Lovenox daily 8. Regular diet Abigail Hanna MD VS, I&O, 24H, [facility] Vital Signs/I&O Vital Signs Date Time Temp Pulse Resp B/P (MAP) Pulse Ox O2 Delivery O2 Flow Rate FiO2 06/04/20 06:06 98.1 97 18 115/56 (75) 06/04/20 03:34 95 Room Air I&O- Last 24 Hours up to 6 AM 06/04/20 06:00 Intake Total 2665 ml Output Total 1650 ml Balance 1015 ml Laboratory Data 24H LABS Laboratory Tests 2 06/03/20 08:26: Serology Scanned Report Hepatitis B Testing 06/03/20 09:00: Nucleated Red Blood Cells % (auto) 0.0, Syphilis Serology NONREACTIVE 06/03/20 21:10: Cord Arterial Blood pH 7.237, Cord Arterial Blood PCO2 58.2, Cord Arterial Blood PO2 18.1, Cord Arterial Blood HCO3 24.2, Cord Arterial Blood Total CO2 26.0, Cord Arterial Blood Base Excess -4.2, Cord Arterial Base Excess (Standard 19.7, Cord Arterial Bld Oxygen Saturation 38.1, Cord Venous Blood pH 7.316, Cord Venous Blood PCO2 46.9, Cord Venous Blood PO2 29.6, Cord Venous Blood HCO3 23.4, Cord Venous Blood Total CO2 24.8, Cord Venous Base Excess (Actual) -3.0, Cord Venous Base Excess (Standard) 21.3, Cord Venous Blood Oxygen Saturation 71.2 CBC/BMP Laboratory Tests 06/03/20 09:00 Abigail Hanna MD Jun 04, 2020 06:44
[2020-06-04] MEDS ORDERED: DOK1CAP7 PO (06:54)
[2020-06-04] MEDS ORDERED: IBUP80TA PO (06:54)
[2020-06-04] MEDS ORDERED: PERCOCET PO (06:54)
[2020-06-04 07:47] LABS: HEMATOCRIT 28.6 % (36.0-47.0); MEAN CORPUSCULAR HGB CONC 30.4 g/dl (32.0-36.5); MEAN CORPUSCULAR VOLUME 82.2 fl (80.0-96.0); RED BLOOD COUNT 3.48 10^6/uL (4.00-5.40); WHITE BLOOD COUNT 11.6 10^3/uL (4.0-10.0)
[2020-06-04 08:21] LABS: HEMOGLOBIN 8.7 g/dl (12.0-15.5); PLATELET COUNT, AUTOMATED 82 10^3/uL (150-450)
[2020-06-04] MEDS: DOCUSATE SODIUM 100MG CAPSULE PO SCH ×2 (08:34→21:00)
[2020-06-04] MEDS: PRENATAL VITAMINS CHEWABLE TABLET PO SCH (08:34)
[2020-06-04] MEDS: ENOXAPARIN 60MG/0.6ML SYRINGE (J1650 PER 10MG) SC SCH (08:35)
[2020-06-04] MEDS ORDERED: ENOXAPARIN 60MG/0.6ML SYRINGE (J1650 PER 10MG) SC SCH (09:00)
--- NOTE | 2020-06-04 11:49 | RO ---
OPERATIVE NOTE DATE OF OPERATION: 06/04/2020 PREOPERATIVE DIAGNOSES: 1. 39 week 5 day single intrauterine , elective induction. 2. Development of non-reassuring heart rate tracing with persistent bradycardia. POSTOPERATIVE DIAGNOSES: 1. 39 week 5 day single intrauterine , elective induction. 2. Development of non-reassuring heart rate tracing with persistent bradycardia. 3. Asynclitic presentation. OPERATION PERFORMED: Emergent primary low transverse section. SURGEON: Abigail Hanna MD ELECTROLYSIS OPERATOR: site damage prevention technician CLINICAL SERVICE: Obstetrics ANESTHESIA: epidural INDICATION FOR PROCEDURE: Nedra is a 24-year-old G3 now P3-0-0-3 who was undergoing elective induction of labor at 39 weeks 5 days and during her labor course she developed a non-reassuring heart rate tracing with persistent bradycardia in the 100s and later in the 80s. Despite multiple attempts at resuscitation with IV fluids, ephedrine for low blood pressure, oxygen, fluid bolus, hrxgk-tgh-hruic positioning, we were unable to obtain a normal heart rate, and she was taken urgently to the operating room. She was verbally consented on the way. MATERIALS FORWARDED TO LAB FOR EXAMINATION: Cord gases: pH arterial 7.237, base excess -4.2; pH venous 7.316, base excess -3. DESCRIPTIONS OF FINDINGS: Male in cephalic presentation. Very asynclitic wedged into the pelvis. Apgars 9 and 9. Weight 3940 grams or 8 pounds 11 ounces. Normal-appearing uterus, fallopian tubes and ovaries. INFECTION CLASSIFICATION: 2. ESTIMATED BLOOD LOSS: 700 mL. IV FLUIDS: 1200 mL of lactated Ringer's. URINE OUTPUT: 150 mL of dark but clear urine. DESCRIPTION OF OPERATION: After obtaining verbal consent, the patient was taken to the operating room. Doptones in the OR were 100 beats per minute. She already had a Sanchez catheter in place with bilateral sequential compression devices because she had an epidural previously placed. She was prepped with Betadine splash and draped in normal sterile fashion in the dorsal supine position with a left lateral tilt. Timeout was performed to confirm patient name, date of , procedure and indication. The team was in agreement. I had ordered 2 grams of IV Ancef to be given as well as 500 mg of IV azithromycin. Epidural anesthesia was found to be adequate. Pfannenstiel skin incision was made with the scalpel, carried through to the underlying layer of fascia. Fascia was incised in the midline and the incision was extended laterally with blunt dissection. Peritoneum was entered digitally after the rectus muscles were moved apart. At that point the uterine incision was made with a scalpel in the lower uterine segment and the uterus was then entered bluntly and the incision was extended with traction. 's head was elevated to the level of the incision, which took approximately 30-60 seconds given there was some difficulty with the head being wedged in an asynclitic position. Fundal pressure was applied and the head was delivered atraumatically in the OP position. Anterior shoulder, posterior shoulder and corpus were delivered without difficulty. Nose and mouth were suctioned with bulb suction. Cord was clamped x2 and cut. Infant was handed off to the awaiting nursing team. Cord gases were obtained. Placenta was removed with uterine massage and traction on the umbilical cord. The uterus was exteriorized and cleared of all clot and debris. Uterine incision was repaired with 0 Vicryl suture in a running locking fashion. There were a few areas of bleeding along the hysterotomy which I repaired with [id number] sutures using 0 Vicryl. And then, a second layer of 0 Monocryl was used to close the hysterotomy incision in an imbricating fashion. The uterine incision was inspected and hemostasis was noted. Posterior cul-de-sac was suctioned and uterus was returned to the abdomen. Gutters were cleared of clots. Hysterotomy was reinspected and Gus was placed along the incision line. There was no further bleeding noted. Peritoneum was closed using 3-0 Vicryl suture in a running fashion. Rectus muscles were reapproximated with three [id number] sutures using 3-0 Vicryl suture. Fascia was reapproximated with 0 Vicryl suture in a running fashion. Subcutaneous tissue was copiously irrigated. Margret's fascia was reapproximated using 3-0 Vicryl suture in a running fashion. Skin edges were reapproximated using another suture line of 3-0 Vicryl suture, and then a running subcuticular stitch using 4-0 Monocryl suture was used for final skin closure. Incision was cleaned using a wet lap and dried with dry lap. Steri-Strips were applied in the usual fashion perpendicular to the Pfannenstiel incision. An Optifoam dressing was then applied. Vagina was cleared of all blood clot without active bleeding noted. The fundus was firm at U-1 cm. There was an x-ray performed prior to the skin closure but after the fascia was closed and I observed the x-ray and noted nothing was retained. Procedure was without complication. The patient tolerated the procedure well. She was taken to the recovery room on labor and delivery in stable condition. CHIQUIS
[2020-06-04] MEDS: PERCOCET 5MG/325MG TAB PO PRN ×3 (14:20→23:30)
[2020-06-04] MEDS ORDERED: SLF 3 ML SYR IV PRN (18:45)
[2020-06-04] MEDS: SLF 3 ML SYR IV SCH (21:40)
[2020-06-05] MEDS: IBUPROFEN 800 MG TAB PO SCH ×3 (00:53→17:21)
[2020-06-05 02:00] VITALS: BP 129/68
[2020-06-05 05:44] VITALS: BP 137/75
[2020-06-05] MEDS: SLF 3 ML SYR IV SCH ×2 (06:00→22:54)
--- NOTE | 2020-06-05 08:23 | IPNPDOC ---
Text Note Date of Service The patient was seen on 06/05/20. NOTE PO #2 Feels well. No complaints. OOB independently. Adequate pain management. Voiding VSS, afebrile, normotensive Fundus firm, NT Dressing intact, old drainage Lochia rubra scant without odor. Consulted Dr Ty last evening regarding repeat CBC showing anemia and thrombocytopenia as regards Lovenox. Instructed to continue medication. Nursing this am will consult him again due to hospital protocol. Item Value Date Time White Blood Count 11.6 10^3/uL H 06/04/20 0714 Red Blood Count 3.48 10^6/uL L 06/04/20 0714 Hemoglobin 8.7 g/dl L # 06/04/20 0714 Hematocrit 28.6 % L 06/04/20 0714 Mean Corpuscular Volume 82.2 fl 06/04/20 07 Mean Corpuscular Hemoglobin 25.0 pg L 06/04/20 0714 Mean Corpuscular Hemoglobin Concent 30.4 g/dl L 06/04/20 0714 Red Cell Distribution Width 14.8 % H 06/04/20 0714 Platelet Count 82 10^3/uL L 06/04/20 0714 Nucleated Red Blood Cells % (auto) 0.0 % 06/04/20 0714 Immature Platelet Fraction 19.0 % H 06/04/20 0714 VS,Fishbone, I+O VS, Fishbone, I+O Vital Signs Date Time Temp Pulse Resp B/P (MAP) Pulse Ox O2 Delivery O2 Flow Rate FiO2 06/05/20 05:44 98.1 105 17 137/75 (95) 100 Room Air I&O- Last 24 Hours up to 6 AM 06/05/20 06:00 Intake Total 4085 ml Output Total 700 ml Balance 3385 ml Teresa Bentley CNM Jun 05, 2020 08:23
[2020-06-05 08:37] LABS: HEMATOCRIT 28.9 % (36.0-47.0); HEMOGLOBIN 8.9 g/dl (12.0-15.5); MEAN CORPUSCULAR HEMOGLOBIN 25.7 pg (27.0-33.0); MEAN CORPUSCULAR HGB CONC 30.8 g/dl (32.0-36.5); MEAN CORPUSCULAR VOLUME 83.5 fl (80.0-96.0); RED BLOOD COUNT 3.46 10^6/uL (4.00-5.40); WHITE BLOOD COUNT 11.1 10^3/uL (4.0-10.0)
[2020-06-05 08:38] LABS: PLATELET COUNT, AUTOMATED 92 10^3/uL (150-450)
[2020-06-05] MEDS: DOCUSATE SODIUM 100MG CAPSULE PO SCH ×2 (08:40→20:00)
[2020-06-05] MEDS: PRENATAL VITAMINS CHEWABLE TABLET PO SCH (08:40)
[2020-06-05] MEDS: ENOXAPARIN 60MG/0.6ML SYRINGE (J1650 PER 10MG) SC SCH (09:00)
[2020-06-05] MEDS: PERCOCET 5MG/325MG TAB PO PRN (09:24)
[2020-06-05 10:00] VITALS: BP 145/85
[2020-06-05 14:00] VITALS: BP 129/57
[2020-06-05 18:00] VITALS: BP 129/66
[2020-06-05 22:00] VITALS: BP 130/71
[2020-06-06] MEDS: IBUPROFEN 800 MG TAB PO SCH ×2 (00:34→08:22)
[2020-06-06] MEDS: SLF 3 ML SYR IV SCH (05:00)
[2020-06-06 05:23] VITALS: BP 118/59
[2020-06-06 07:42] LABS: HEMATOCRIT 28.2 % (36.0-47.0); HEMOGLOBIN 8.7 g/dl (12.0-15.5); MEAN CORPUSCULAR HEMOGLOBIN 25.3 pg (27.0-33.0); MEAN CORPUSCULAR HGB CONC 30.9 g/dl (32.0-36.5); PLATELET COUNT, AUTOMATED 111 10^3/uL (150-450); RED BLOOD COUNT 3.44 10^6/uL (4.00-5.40); WHITE BLOOD COUNT 12.4 10^3/uL (4.0-10.0)
[2020-06-06] MEDS: DOCUSATE SODIUM 100MG CAPSULE PO SCH (08:21)
[2020-06-06] MEDS: PRENATAL VITAMINS CHEWABLE TABLET PO SCH (08:21)
[2020-06-06] MEDS: ENOXAPARIN 60MG/0.6ML SYRINGE (J1650 PER 10MG) SC SCH (08:23)
--- NOTE | 2020-06-06 10:46 | DS.PDOC ---
Discharge Summary General Date of Admission Jun 03, 2020 at 08:11 Date of Discharge 06/06/2020 Attending Physician: Abigail Hanna MD Discharge Summary PROCEDURES PERFORMED DURING STAY: 1. Epidural 2 section. ADMITTING DIAGNOSES: 1. Induction labor. DISCHARGE DIAGNOSES: 1. section for nonreassuring status. COMPLICATIONS/CHIEF COMPLAINT: Induction. HISTORY OF PRESENT ILLNESS: Nedra is a 24yo [id number] s/p uncomplicated emergent PLTCS at 40w5d when undergoing elective IOL for development of NRFHT with persistent bradycardia. She did well postoperatively and by postoperative day #3 met all discharge criteria is as discharged home stable condition DISCHARGE MEDICATIONS: Please see below. ALLERGIES: Please see below. PHYSICAL EXAMINATION ON DISCHARGE: VITAL SIGNS: Please see below. GENERAL: Well-appearing no acute distress ABDOMINAL EXAMINATION: Appropriate tender fundus firm below umbilicus. Incision was dressed EXTREMITIES: Negative calf tenderness NEUROLOGICAL EXAMINATION: Grossly intact PSYCHIATRIC EXAMINATION: Appropriate LABORATORY DATA: Please see below. ACTIVITY: As tolerated. DIET: Regular DISCHARGE PLAN: Home to follow-up in 2 weeks DISCHARGE INSTRUCTIONS: 1. Remove dressing in 5-7 days. 2. Reports severe pain heavy vaginal bleeding or fever. DISCHARGE CONDITION: Stable. Vital Signs/I&Os Vital Signs Date Time Temp Pulse Resp B/P (MAP) Pulse Ox O2 Delivery O2 Flow Rate FiO2 06/06/20 05:23 97.9 96 16 118/59 (78) 96 Room Air Laboratory Data Labs 24H Laboratory Tests 2 06/06/20 07:05: Nucleated Red Blood Cells % (auto) 0.0 CBC/BMP Laboratory Tests 06/06/20 07:05 Discharge Medications Scheduled Docusate Sodium (Dok) 100 Mg Capsule, 100 MG PO BID Ibuprofen (Ibuprofen) 800 Mg Tablet, 800 MG PO Q8H No.137/Iron/Folic Acd ( Vitamin Tablet) 1 Each Tablet, 1 TAB PO DAILY, (Reported) Scheduled PRN Oxycodone/Acetaminophen (Oxycodone-Acetaminophen 5-325) 1 Each Tablet, 2 TAB PO Q6H PRN for SEVERE PAIN (PS 8-10) Allergies Coded Allergies: Shrimp (Verified Allergy, Severe, throat closes can't breathe, 04/13/19) SEASONAL ALLERGIES (Verified Allergy, Unknown, 07/10/18) RITIKA GUZMAN MD. Jun 06, 2020 10:46
== END 2020-06-06 14:20 | disposition home or self-care (01) | DRG 540 ==
LOC: M LDI 08:11 → M OBS 06-04 00:14
PROVIDERS: ADMIT Obstetrics & Gynecology; ATTEND Obstetrics & Gynecology
PROC: 3E033VJ Introduction of Other Hormone into Peripheral Vein, Percutaneous Approach (ICD-10-PCS; 2020-06-03)
PROC: 10907ZC Drainage of Amniotic Fluid, Therapeutic from Products of Conception, Via Natural or Artificial Opening (ICD-10-PCS; 2020-06-03)
PROC: 10D00Z1 Extraction of Products of Conception, Low, Open Approach (ICD-10-PCS; principal; 2020-06-04)
DX: O99.334 Smoking (tobacco) complicating childbirth (principal); F17.218 Nicotine dependence, cigarettes, with other nicotine-induced disorders; O99.214 Obesity complicating childbirth; E66.9 Obesity, unspecified; Z3A.39 39 weeks gestation of pregnancy; Z37.0 Single live birth; O76 Abnormality in fetal heart rate and rhythm complicating labor and delivery; O64.8XX0 Obstructed labor due to other malposition and malpresentation, not applicable or unspecified

== ENCOUNTER 2020-06-14 23:43 | Inpatient (IN) | payer OTHER ==
[~2020-06-14] VITALS: Ht 162.6 cm; Wt 118.9 kg
[~2020-06-14 23:43] MED LIST changes: +DOK1CAP7 PO; +PERCOCET PO
[2020-06-15] MEDS ORDERED: NS 1,000 ML IV ONE
[2020-06-15] MEDS ORDERED: ACETAMINOPHEN TAB 650MG DOSE (2X325MG) PO ONE (00:30)
[2020-06-15] MEDS ORDERED: IBUPROFEN 800 MG TAB PO ONE (00:30)
[2020-06-15 00:43] LABS: BASO % 0.2 % (0.0-1.0); EOS % 0.1 % (0.0-3.0); HEMATOCRIT 27.1 % (36.0-47.0); HEMOGLOBIN 8.1 g/dl (12.0-15.5); LYMPH # 1.4 10^3/uL (1.5-5.0); LYMPH % 8.3 % (24.0-44.0); MEAN CORPUSCULAR HEMOGLOBIN 24.5 pg (27.0-33.0); MEAN CORPUSCULAR HGB CONC 29.9 g/dl (32.0-36.5); MEAN CORPUSCULAR VOLUME 81.9 fl (80.0-96.0); MONO % 6.1 % (0.0-5.0); NEUTROPHILS # 14.2 10^3/uL (1.5-8.5); NEUTROPHILS % 84.3 % (36.0-66.0); PLATELET COUNT, AUTOMATED 194 10^3/uL (150-450); RED BLOOD COUNT 3.31 10^6/uL (4.00-5.40); WHITE BLOOD COUNT 16.9 10^3/uL (4.0-10.0)
--- NOTE | 2020-06-15 01:00 | REPVR ---
PROCEDURE INFORMATION: Exam: US Nonobstetric Pelvis; Complete Exam date and time: 06/14/2020 12:36 AM Age: 24 years old Clinical indication: Pelvic pain; Prior surgery; Surgery date: <1 month; Surgery type: C -section; Additional info: Fever, recent c/s, R/O retained products TECHNIQUE: Imaging protocol: Transabdominal pelvic nonobstetric ultrasound. Complete exam. Real time ultrasound with image documentation. COMPARISON: 1. CT ABD/PEL W/IV CONTRAST ONLY 07/31/2018 1:46 AM 2. OBS LIMITED US 04/29/2020 1:49:51 PM FINDINGS: Uterus/cervix: The uterus is enlarged and measures 13.6 cm x 7.3 cm x 9.5 cm. The endometrium measures 12 mm in thickness and is homogeneous in appearance. There is a trace amount of fluid in the endometrial canal. Right adnexa: The right ovary is normal in appearance. No right ovarian cyst or right adnexal mass is noted. The right ovary measures 3.1 cm x 2.5 cm x 2.5 cm. The color Doppler flow and spectral waveforms within the right ovary are within normal limits, without evidence for right ovarian torsion. Left adnexa: The left ovary was not visualized due to obscuration by intestinal gas. Intraperitoneal space: No free fluid is seen from the images obtained. Urinary bladder: The urinary bladder was not distended for optimal evaluation. IMPRESSION: 1. No sonographic evidence for retained products of conception. 2. Trace amount of fluid in the endometrial canal. Electronically signed by: Peewee Mcnamara On 06/15/2020 01:00:30 AM
[2020-06-15 01:20] LABS: BILIRUBIN,DIRECT 0.1 MG/DL (0.0-0.2); BILIRUBIN,TOTAL 0.3 MG/DL (0.2-1.0); TOTAL PROTEIN 6.2 GM/DL (6.4-8.2)
[2020-06-15 01:41] LABS: RSV AMPLIFICATION NEGATIVE (NEGATIVE)
[2020-06-15] MEDS ORDERED: ISOVUE-370 76% 100ML VIAL As Ordered ONE (01:41)
--- NOTE | 2020-06-15 02:54 | REPVR ---
PROCEDURE INFORMATION: Exam: CT Abdomen And Pelvis With Contrast Exam date and time: 06/15/2020 12:56 AM Age: 24 years old Clinical indication: Abdominal pain; Periumbilical; Prior surgery; Surgery date: <1 month; Patient HX: Recent ; Additional info: Fever of unknown origin, recent surgery TECHNIQUE: Imaging protocol: Computed tomography of the abdomen and pelvis with intravenous contrast. Radiation optimization: All CT scans at this facility use at least one of these dose optimization techniques: automated exposure control; mA and/or kV adjustment per patient size (includes targeted exams where dose is matched to clinical indication); or iterative reconstruction. Contrast material: ISO; Contrast volume: 100 ml; Contrast route: INTRAVENOUS (IV); COMPARISON: CT ABD/PEL W/IV CONTRAST ONLY 07/31/2018 1:46 AM FINDINGS: Lungs: For details regarding the lungs, refer to the CTA chest report on 06/15/2020. Heart: For details regarding the heart, refer to the CTA chest report on 06/15/2020. Liver: No liver lesion is seen. The contour of the liver is smooth. The liver is enlarged and in craniocaudal dimension and at the level of the right midclavicular line, the liver measures 18.9 cm. Gallbladder and bile ducts: There has been a cholecystectomy. There is no fluid collection in the gallbladder fossa. No dilation of the bile ducts is noted. No calcified stones are seen in the common bile duct. Pancreas: Normal. No dilation of the main pancreatic duct is noted. There is no inflammatory fat stranding around the pancreas to suggest acute pancreatitis. Spleen: There is a calcified granuloma in the spleen. No splenic mass is noted. The spleen is enlarged and measures 16.1 cm. Incidental note is made of 2 small accessory spleens. Adrenal glands: Normal. No adrenal mass is noted. Kidneys and ureters: The kidneys are normal in appearance. No renal lesion is noted. No stones are noted in the kidneys or ureters. There is no hydronephrosis or hydroureter. There are no wedge-shaped areas of low attenuation in the kidneys to suggest pyelonephritis. There is no renal abscess or perinephric fluid collection. Stomach and bowel: The stomach is decompressed, limiting its optimal evaluation. The small bowel is unremarkable. There is no evidence for a bowel obstruction, diverticulosis, diverticulitis, colitis, perforated viscus, pneumatosis intestinalis, intussusception, or volvulus. There is liquid feces in the colon, which will lead to diarrhea. Appendix: Normal. There is no evidence for appendicitis. Intraperitoneal space: There is a 1.4 cm x 1.4 cm x 4.7 cm lobulated fluid collection in the anterior aspect of the left lower quadrant of the abdomen (images 28-31 of the coronal series 502). No free air is noted. Retroperitoneal space: No fluid collection. No mass. Vasculature: The abdominal aorta is patent, normal in caliber, and there is no dissection. The iliac arteries, common femoral arteries, renal arteries, celiac artery, superior mesenteric artery, and inferior mesenteric artery are patent. The iliac veins, inferior vena cava, portal veins, splenic vein, superior mesenteric vein, inferior mesenteric vein, and renal veins are patent. Lymph nodes: No enlarged lymph nodes. Urinary bladder: The partially distended urinary bladder is unremarkable. No stones or masses are seen in the bladder. Reproductive: The anteverted uterus is enlarged, which is compatible with a recent post gravid state. There is a 5.4 cm x 1.7 cm x 1.6 cm fluid collection containing a punctate focus of gas in the cesarian section scar in the anterior portion of the lower uterine segment, which may represent an abscess or postoperative seroma. Bones/joints: There is diastasis of the pubic symphysis by approximately 2 cm, which has developed since the prior CT abdomen and pelvis on 07/31/2018. There is no fracture. No bony destructive changes are noted. Soft tissues: There is a lower transverse section scar, and there is an 8.5 cm x 2.4 cm x 5.2 cm fluid collection in the rectus sheath at the site of the scar. There is fluid, edema, and punctate foci of gas in the subcutaneous tissues in the anterior pelvic wall with overlying skin thickening. There is also edema in the subcutaneous tissues of the periumbilical region, both flanks, and lumbar region. IMPRESSION: 1. Status post recent section, and there is a 5.4 cm x 1.7 cm x 1.6 cm fluid collection containing a punctate focus of gas in the cesarian section scar in the anterior portion of the lower uterine segment, which may represent an abscess or postoperative seroma. 2. 8.5 cm x 2.4 cm x 5.2 cm fluid collection in the rectus sheath at the site of the section scar, which may represent an abscess or postoperative seroma. 3. 1.4 cm x 1.4 cm x 4.7 cm lobulated fluid collection in the anterior aspect of the left lower quadrant of the abdomen, which may represent an abscess or postoperative seroma. 4. Fluid, edema, and punctate foci of gas in the subcutaneous tissues in the anterior pelvic wall with overlying skin thickening, which may indicate cellulitis or lymphedema. 5. Hepatosplenomegaly. 6. Diastasis of the pubic symphysis by approximately 2 cm, which has developed since the prior CT abdomen and pelvis on 07/31/2018. Electronically signed by: Peewee Mcnamara On 06/15/2020 02:54:29 AM
--- NOTE | 2020-06-15 02:55 | REPVR ---
PROCEDURE INFORMATION: Exam: CT Angiography Chest With Contrast Exam date and time: 06/15/2020 12:56 AM Age: 24 years old Clinical indication: Fever of unknown origin, recent surgery TECHNIQUE: Imaging protocol: Computed tomographic angiography of the chest with intravenous contrast. 3D rendering (Not supervised by radiologist): MIP and/or 3D reconstructed images were created by the technologist. Radiation optimization: All CT scans at this facility use at least one of these dose optimization techniques: automated exposure control; mA and/or kV adjustment per patient size (includes targeted exams where dose is matched to clinical indication); or iterative reconstruction. Contrast material: ISO; Contrast volume: 75 ml; Contrast route: INTRAVENOUS (IV); COMPARISON: CR Chest, 2 view PA, Lat 06/03/2015 1:36 PM FINDINGS: Pulmonary arteries: No pulmonary embolism. Aorta: The thoracic aorta is intact and patent. There is no thoracic aortic aneurysm, pseudoaneurysm, penetrating atherosclerotic ulcer, intramural hematoma, or dissection. Great vessels off aortic arch: The brachiocephalic artery, imaged proximal portions of the common carotid arteries, imaged proximal portions of the vertebral arteries, and subclavian arteries are intact. No stenosis or occlusion of these vessels is noted. Tracheobronchial tree: Intact and patent. Lungs: There is a 3 mm calcified granuloma in the right lower lobe (image 37 of the axial series 402) and a 6 mm calcified granuloma in the right lower lobe (image 64 of the axial series 402). There is a 4 mm calcified granuloma in the lingula (image 46 of the axial series 402). No lung consolidation or ground-glass opacification is noted. Pleural space: Normal. No pneumothorax or pleural effusion. Heart: No cardiomegaly or pericardial effusion. The ratio of the diameter of the right ventricle to the diameter of the left ventricle measures less than 1, which is within normal limits and there is no CT evidence for a right ventricular strain. Mediastinal space: No mediastinal mass, fluid collection, or pneumomediastinum. Lymph nodes: There are subcentimeter calcified right hilar lymph nodes, which represent calcified granulomas. No enlarged lymph nodes. Bones/joints: There is no fracture or dislocation. No suspicious osteolytic or osteoblastic lesion. Soft tissues: Unremarkable. No soft tissue fluid collection. IMPRESSION: No acute findings in the chest. No pulmonary embolism. Electronically signed by: Peewee Mcnamara On 06/15/2020 02:54:39 AM
[2020-06-15] MEDS ORDERED: NS 2,400 ML in IV 1 EA IV ONE (03:30)
[2020-06-15] MEDS ORDERED: PIPERACILLIN/TAZOBACTAM SOD 3.375 GM in D5W MINI-BAG PLUS 50 ML IV ONE (03:30)
[2020-06-15] MEDS ORDERED: DOCU100C17 PO (03:33)
[2020-06-15] MEDS ORDERED: IBUP1TAB7 PO (03:33)
[2020-06-15] MEDS ORDERED: PERCOCET 5MG/325MG TAB PO PRN (03:45)
[2020-06-15 06:00] VITALS: BP 108/58
[2020-06-15 06:44] LABS: BASO % 0.3 % (0.0-1.0); EOS % 0.3 % (0.0-3.0); HEMATOCRIT 22.4 % (36.0-47.0); LYMPH # 1.1 10^3/uL (1.5-5.0); LYMPH % 8.3 % (24.0-44.0); MEAN CORPUSCULAR HEMOGLOBIN 24.2 pg (27.0-33.0); MEAN CORPUSCULAR HGB CONC 28.6 g/dl (32.0-36.5); MEAN CORPUSCULAR VOLUME 84.8 fl (80.0-96.0); MONO # 0.7 10^3/uL (0.0-0.8); MONO % 5.6 % (0.0-5.0); NEUTROPHILS # 11.2 10^3/uL (1.5-8.5); NEUTROPHILS % 84.5 % (36.0-66.0); PLATELET COUNT, AUTOMATED 145 10^3/uL (150-450); RED BLOOD COUNT 2.64 10^6/uL (4.00-5.40); WHITE BLOOD COUNT 13.3 10^3/uL (4.0-10.0)
[2020-06-15 06:51] LABS: HEMOGLOBIN 6.4 g/dl (12.0-15.5)
--- NOTE | 2020-06-15 09:07 | HPE ---
ER CONSULTATION/HISTORY AND PHYSICAL ADMIT NOTE DATE OF ADMISSION: 06/14/2020 HISTORY OF PRESENT ILLNESS: Nedra is a 24-year-old female 3 para 3-0-0-3 status post an uncomplicated emergent section done on June 03, 2020. She was discharged from the hospital on 06/06/2020. She presented to the Emergency Room with complaints of abdominal pain and a low-grade temperature. Upon evaluation in the Emergency Room, she was found to have what appeared to be a collection at her incision site on ultrasound. She also had an elevated white count as well as a low-grade temperature. After extensive counseling and discussing the case with the Emergency Room physician, a decision was made to admit the patient for observation and to be placed on an antibiotic. While in the ER, a urine culture and blood culture was sent. Her full record was reviewed as well as a record. PAST MEDICAL HISTORY: Significant for obesity. PAST SURGICAL HISTORY: She had a cholecystectomy. She had her section. SOCIAL HISTORY: She is a chronic smoker. She smokes approximately 1/2 pack of cigarettes per day. She denies any alcohol or drug use. FAMILY HISTORY: Significant for colon cancer. REVIEW OF SYSTEMS: Unremarkable. PHYSICAL EXAMINATION: Obese female in no acute distress. Abdomen is soft, nontender and nondistended. Her incision site appears to be healing well. No evidence of any collection on exam, however she does have pedunculated pannus that is covering over the incision. There is no erythema and no evidence of any drainage. No increased warmth. Her lochia is minimal. LABORATORY DATA: White count is 16.9. Her admitting H and H was 8.1/27.1. However, repeated one done this morning shows the H and H dropped to 6.7. The patient also had a CT of the chest and angio which was negative for PE. Questionable abscess or postop seroma noted. CT of the abdomen and pelvis: No other evidence noted. ASSESSMENT: A 24-year-old female who is approximately 18 days post discharge from the hospital with questionable abdominal collection. No evidence of infection on exam. PLAN: Patient will be admitted for observation, rule out sepsis. Unasyn continued. Repeat blood count sent. If her H and H continues to be low, transfusion will be considered, however this patient is not having any signs of active bleeding and seems to be doing well. The patient was counseled extensively. If her H and H drops or remains at 6, blood transfusion could be considered. She is aware that this will be signed out to Dr. Meyer who is coming on and taking over for the care of this patient. cc: [facility]
[2020-06-15] MEDS: LR 1,000 ML IV SCH ×2 (09:26→15:30)
[2020-06-15] MEDS: PIPERACILLIN/TAZOBACTAM SOD 3.375 GM in D5W MINI-BAG PLUS 50 ML IV SCH ×3 (09:27→22:19)
[2020-06-15 10:04] LABS: HEMATOCRIT 23.2 % (36.0-47.0)
[2020-06-15 10:08] LABS: HEMOGLOBIN 6.8 g/dl (12.0-15.5)
[2020-06-15 12:00] VITALS: BP 111/53
[2020-06-15 16:00] VITALS: BP 115/57
[2020-06-15] MEDS: ACETAMINOPHEN 500 MG TAB PO PRN (17:25)
[2020-06-15 19:55] VITALS: BP 111/55
[2020-06-16] VITALS (15 sets, daily range): BP systolic 90–130; BP diastolic 49–61
[2020-06-16] MEDS: ACETAMINOPHEN 500 MG TAB PO PRN ×4 (00:11→20:43)
[2020-06-16] MEDS: PIPERACILLIN/TAZOBACTAM SOD 3.375 GM in D5W MINI-BAG PLUS 50 ML IV SCH ×4 (04:09→22:23)
[2020-06-16] MEDS: LR 1,000 ML IV SCH ×2 (04:10→22:23)
[2020-06-16 07:39] LABS: HEMATOCRIT 22.9 % (36.0-47.0); MEAN CORPUSCULAR HGB CONC 28.8 g/dl (32.0-36.5); MEAN CORPUSCULAR VOLUME 83.3 fl (80.0-96.0); PLATELET COUNT, AUTOMATED 172 10^3/uL (150-450); RED BLOOD COUNT 2.75 10^6/uL (4.00-5.40); WHITE BLOOD COUNT 12.1 10^3/uL (4.0-10.0)
[2020-06-16 07:41] LABS: HEMOGLOBIN 6.6 g/dl (12.0-15.5)
--- NOTE | 2020-06-16 09:00 | IPNPDOC ---
Subjective Date Seen The patient was seen on 06/16/20. Subjective Chief Complaint/HPI Patient is s/p emergent PLTCS on 06/04/20. She was readmitted on 06/15/20 for postoperative fever, and evidence of multiple fluid collections on CT a/p. She was also noted to have a mildly elevated WBC and low H/H. She was started on Zosyn, and this has continued throughout her hospital course. She is not complaining of any significant vaginal/uterine bleeding. She also denies any localizing pain. Her only complaint is mild dizziness/lightheadedness when she ambulates. She is able to ambulate without assistance, and she is tolerating a regular diet. Her incision has not opened or drained, nor is there any significant surrounding redness. Events since last encounter Continues to have intermittent fever Objective Physical Examination General Exam: Positive: Alert, No Acute Distress ENT Exam: Positive: Atraumatic, Mucous membr. moist/pink Chest Exam: Positive: Clear to auscultation, Normal air movement Heart Exam: Positive: Rate Normal, Regular Rhythm, Normal S1, Normal S2; Negative: Murmurs, Rubs Abdomen Exam: Positive: Normal bowel sounds, Soft, Other (Induration over superior aspect of incision . Incision is clean , dry, intact, without surrounding erythema.); Negative: Tenderness, Hepatospenomegaly Extremity Exam: Positive: Normal pulses; Negative: Clubbing, Cyanosis, Edema Skin Exam: Positive: Nl turgor and temperature; Negative: Rash, Breakdown Psych Exam: Positive: Mental status NL, Mood NL, Oriented x 3 Assessment /Plan Assessment Postoperative fever, hematoma (possible abscess). WBC improved. Still anemic. -Plan on 2u Prbc transfusion. -Continue Zosyn. -Monitor closely -Consider drainage of fluid collections if clinically unstable. Plan/VTE VTE Prophylaxis Ordered?: Yes VS, I&O, 24H, Fishbone Vital Signs/I&O Vital Signs Date Time Temp Pulse Resp B/P (MAP) Pulse Ox O2 Delivery O2 Flow Rate FiO2 06/16/20 08:40 98.3 87 18 109/55 94 Room Air I&O- Last 24 Hours up to 6 AM 06/16/20 06:00 Intake Total 2290 ml Output Total 925 ml Balance 1365 ml Laboratory Data 24H LABS Laboratory Tests 2 06/16/20 07:22: Nucleated Red Blood Cells % (auto) 0.0 CBC/BMP Laboratory Tests 06/15/20 09:44 06/16/20 07:22 Microbiology Microbiology 06/15/20 Urine Culture, Received Pending 06/15/20 Blood Culture - Preliminary, Resulted No growth after 24 hours . All specim... 06/15/20 Blood Culture - Preliminary, Resulted No growth after 24 hours . All specim... YUMIKO VELEZ DO Jun 16, 2020 09:00
[2020-06-17] VITALS (7 sets, daily range): BP systolic 108–128; BP diastolic 53–65
[2020-06-17] MEDS: PIPERACILLIN/TAZOBACTAM SOD 3.375 GM in D5W MINI-BAG PLUS 50 ML IV SCH ×4 (04:02→22:26)
[2020-06-17] MEDS: ACETAMINOPHEN 500 MG TAB PO PRN ×3 (04:03→22:28)
[2020-06-17] MEDS: LR 1,000 ML IV SCH ×2 (05:30→14:31)
[2020-06-17 08:26] LABS: HEMATOCRIT 27.2 % (36.0-47.0); HEMOGLOBIN 8.2 g/dl (12.0-15.5); MEAN CORPUSCULAR HEMOGLOBIN 25.3 pg (27.0-33.0); MEAN CORPUSCULAR HGB CONC 30.1 g/dl (32.0-36.5); PLATELET COUNT, AUTOMATED 223 10^3/uL (150-450); RED BLOOD COUNT 3.24 10^6/uL (4.00-5.40); WHITE BLOOD COUNT 12.5 10^3/uL (4.0-10.0)
--- NOTE | 2020-06-17 14:37 | IPNPDOC ---
Progress Note Date of Service: Jun 17, 2020 Day#: 14 Progress Note SUBJECT: 24 yo s/p POD#14, readmitted HD#3 with abdominal pain, fevers. Currently has no abdominal pain. OBJECTIVE: VITAL SIGNS: Within normal limits, afebrile. Alert and oriented times three. Breath sounds clear to auscultation. Heart rate: Regular rate and rhythm, no murmurs, rubs or gallops. Abdomen: Fundus firm at U-2. Soft, NTTP. Abdominal CT: subcutaneous fluid collection, as well as subfascial fluid collection, normal uterus ASSESSMENT: 24 yo POD#14 with probable subcutaneous seroma, subfascial hematoma, probable infection of fluid collections Hb=8.2 g/dl after transfusion PLAN: 1. Continue Zosyn 2. fever curve seems to be improving 3. Will not plan surgical intervention at this time, as patient has no pain. 4. Pt has social issues; transportation needed for daily dressing changes may not be readily available 5. If fevers do not resolve, may need to consider surgical drainage in the future. VS, I&O, 24H, Fishbone Vital Signs/I&O Vital Signs Date Time Temp Pulse Resp B/P (MAP) Pulse Ox O2 Delivery O2 Flow Rate FiO2 06/17/20 13:55 99.0 06/17/20 12:10 83 15 117/62 (80) 93 06/17/20 04:00 Room Air I&O- Last 24 Hours up to 6 AM 06/17/20 06:00 Intake Total 3208 ml Output Total 950 ml Balance 2258 ml Laboratory Data 24H LABS Laboratory Tests 2 06/17/20 07:39: Nucleated Red Blood Cells % (auto) 0.0 CBC/BMP Laboratory Tests 06/17/20 07:39 Microbiology Microbiology 06/15/20 Urine Culture - Final, Complete 06/15/20 Blood Culture - Preliminary, Resulted No Growth after 48 hours. All Specime... 06/15/20 Blood Culture - Preliminary, Resulted No Growth after 48 hours. All Specime... QUINN ESPARZA MD Jun 17, 2020 14:37
[2020-06-18] MEDS: LR 1,000 ML IV SCH ×2 (00:47→09:59)
[2020-06-18 04:30] VITALS: BP 116/58
[2020-06-18] MEDS: PIPERACILLIN/TAZOBACTAM SOD 3.375 GM in D5W MINI-BAG PLUS 50 ML IV SCH ×2 (04:32→09:59)
[2020-06-18 08:26] VITALS: BP 121/59
--- NOTE | 2020-06-18 09:21 | IPNPDOC ---
Subjective Date Seen The patient was seen on 06/18/20. Subjective Chief Complaint/HPI No pain at all currently Objective Physical Examination General Exam: Positive: Alert, No Acute Distress Eye Exam: Positive: PERRLA ENT Exam: Positive: Atraumatic, Mucous membr. moist/pink Chest Exam: Positive: Clear to auscultation, Normal air movement Heart Exam: Positive: Rate Normal, Regular Rhythm, Normal S1, Normal S2; Negative: Murmurs, Rubs Abdomen Exam: Positive: Normal bowel sounds, Soft, Other (Induration over superior aspect of incision . Incision is clean , dry, intact, without surrounding erythema.); Negative: Tenderness, Hepatospenomegaly Extremity Exam: Positive: Normal pulses; Negative: Clubbing, Cyanosis, Edema Skin Exam: Positive: Nl turgor and temperature; Negative: Rash, Breakdown Psych Exam: Positive: Mental status NL, Mood NL, Oriented x 3 Assessment /Plan Assessment 24 yo POD#14 s/p with subcutaneous and subfacial fluid collections Continue Zosyn Fever curve and symptoms appear to be resolving Do not plan return to OR at this time Plan/VTE VTE Prophylaxis Ordered?: Yes VS, I&O, 24H, Fishbone Vital Signs/I&O Vital Signs Date Time Temp Pulse Resp B/P (MAP) Pulse Ox O2 Delivery O2 Flow Rate FiO2 06/18/20 08:26 99.2 76 18 121/59 (79) 96 06/17/20 04:00 Room Air I&O- Last 24 Hours up to 6 AM 06/18/20 06:00 Intake Total 120 ml Output Total 675 ml Balance -555 ml Laboratory Data Microbiology Microbiology 06/15/20 Urine Culture - Final, Complete 06/15/20 Blood Culture - Preliminary, Resulted No Growth after 72 hours. All specime... 06/15/20 Blood Culture - Preliminary, Resulted No Growth after 72 hours. All specime... QUINN ESPARZA MD Jun 18, 2020 09:21
[2020-06-18 12:30] VITALS: BP 108/50
[2020-06-18] MEDS: AUGMENTIN 500 MG TAB PO SCH ×2 (15:22→21:32)
[2020-06-18 15:58] VITALS: BP 115/54
[2020-06-18 20:00] VITALS: BP 121/58
[2020-06-19] VITALS: BP 119/62
[2020-06-19 04:00] VITALS: BP 119/56
[2020-06-19] MEDS: AUGMENTIN 500 MG TAB PO SCH ×2 (08:22→15:36)
[2020-06-19 08:24] VITALS: BP 115/56
[2020-06-19] MEDS ORDERED: AMOX500T2 PO (09:46)
[2020-06-19 12:22] VITALS: BP 114/60
[2020-06-19 12:55] LABS: HEMATOCRIT 29.1 % (36.0-47.0); HEMOGLOBIN 8.5 g/dl (12.0-15.5); MEAN CORPUSCULAR HGB CONC 29.2 g/dl (32.0-36.5); MEAN CORPUSCULAR VOLUME 85.6 fl (80.0-96.0); PLATELET COUNT, AUTOMATED 246 10^3/uL (150-450); WHITE BLOOD COUNT 8.9 10^3/uL (4.0-10.0)
[2020-06-19 13:23] LABS: ALBUMIN 1.7 GM/DL (3.2-5.2); ALT/SGPT 10 U/L (12-78); BILIRUBIN,TOTAL 0.2 MG/DL (0.2-1.0); BLOOD UREA NITROGEN 5 MG/DL (7-18); CALCIUM LEVEL 8.1 MG/DL (8.5-10.1); CARBON DIOXIDE LEVEL 28 MEQ/L (21-32); CHLORIDE LEVEL 108 MEQ/L (98-107); GLOMERULAR FILTRATION RATE > 60.0 (>60); GLUCOSE, FASTING 96 MG/DL (70-100); POTASSIUM SERUM 3.1 MEQ/L (3.5-5.1); SODIUM LEVEL 141 MEQ/L (136-145); TOTAL PROTEIN 5.9 GM/DL (6.4-8.2)
[2020-06-19] MEDS ORDERED: POTASSIUM CHLORIDE 10 MEQ SR TABLET PO ONE (14:00)
--- NOTE | 2020-06-19 19:56 | DS.PDOC ---
Discharge Summary General Date of Admission Jun 15, 2020 at 23:24 Date of Discharge 06/19/2020 Discharge Summary DISCHARGE SUMMARY ADMITTING DIAGNOSES: Post operative (status post emergent primary low transverse section) / fever with intra-abdominal infection, supra and infra fascial ab scesses DISCHARGE DIAGNOSES: Same, clinically improved. COMPLICATIONS/CHIEF COMPLAINT: Infection after Obstetrical Procedure. HISTORY OF PRESENT ILLNESS: 24-year-old G2 now P2. Status post emergent primary low transverse section on 06/04/2020, for nonreassuring heart rate tracing. Presented to the emergency department on 06/15/2020 with recurrent fever and abdominal pain. HOSPITAL COURSE: During her ER evaluation, a CT abdomen and pelvis revealed 3 significant fluid collections. One was located in the left lower quadrant and measuring 4.7 cm in greatest dimension. The second was 5.4 cm in greatest dimension and located near the anterior lower uterine segment. The third was measuring 8.5 x 2.4 x 5.2 cm and located along the rectus sheath fascia. Her white blood cell count on initial evaluation was 16.9K. she was admitted for aggressive IV fluid resuscitation/hydration and IV antibiotics (Zosyn). During her hospital course, her fever slowly defervesced. She was also noted to be anemic and she received 2 units of packed red blood cells. Her abdominal pain significantly improved. She did not display any evidence of an acute abdomen during the entire hospital course. The decision was to made to manage her condition conservatively. Her IV antibiotics were transitioned to by mouth antibiotics with Augmentin. On 06/19/20, she remained afebrile for greater than 24 hours. Her abdominal pain was significantly improved, patient stating she "feels so much better". Labs on the day of her discharge, 06/19/20, were significantly improved. Her white blood cell count was 8.9K, and her hemoglobin and hematocrit were 8.5 and 29.1 respectively (latoya of 6.6/22.9). Her MAXIMUM TEMPERATURE was 103.9 on 1231 at 0602. Her temperature upon discharge was 98.6 Fahrenheit. Her last fever was 100.6 Fahrenheit at 00 26 on 06/18/20. She was given a dose of 40 mEq of K-Dur, given her potassium level of 3.1, yet she was asymptomatic. Given that she was meeting all discharge criteria on 06/19/20 and highly desires of discharge to home, the decision was made to discharge her with the plan of continuing the by mouth antibiotic course for the next 10 days. She'll be followed closely in the office with a follow-up appointment earlier next week on a walk-in basis. DISCHARGE MEDICATIONS: Please see below. ALLERGIES: Please see below. PHYSICAL EXAMINATION ON DISCHARGE: VITAL SIGNS: Please see below. GENERAL: Alert and oriented 4, no apparent distress HEENT:. Normocephalic, atraumatic, no lymphadenopathy, normal mucous membranes NECK: Soft, supple, no JVD CARDIOVASCULAR EXAMINATION: Rate and rhythm. No murmurs, gallops, rubs RESPIRATORY EXAMINATION:. Clear to auscultation bilaterally. No wheezes, crackles, rales, rhonchi ABDOMINAL EXAMINATION:, Soft, nontender, nondistended, mild induration above the Pfannenstiel incision (softer and significantly improved compared to initial admission exam). No guarding or rebound tenderness EXTREMITIES:. No clubbing, cyanosis, edema. SKIN: No lesions, Pfannenstiel skin incision is clean, dry and intact NEUROLOGICAL EXAMINATION:. No deficits LABORATORY DATA: Please see below. IMAGING: See above ACTIVITY: As tolerated. No heavy lifting. DIET:, Regular as tolerated DISCHARGE PLAN: To home. Close follow-up as outpatient within the week DISPOSITION: 01 Home, Self-Care. DISCHARGE INSTRUCTIONS: 1. Patient instructed to finish the course of Augmentin 500 mg 3 times a day. ITEMS TO FOLLOWUP ON ON OUTPATIENT: 1. Clinical reassessment within the week. DISCHARGE CONDITION: Clinically much improved, stable. Vital Signs/I&Os Vital Signs Date Time Temp Pulse Resp B/P (MAP) Pulse Ox O2 Delivery O2 Flow Rate FiO2 06/19/20 12:22 98.6 62 18 114/60 (78) 96 Room Air I&O- Last 24 Hours up to 6 AM 06/19/20 06:00 Intake Total 2475 ml Output Total 800 ml Balance 1675 ml Laboratory Data Labs 24H Laboratory Tests 2 06/19/20 09:46: Methicillin-Resist S.aureus DNA PCR NOT DETECTED 06/19/20 12:34: Nucleated Red Blood Cells % (auto) 0.0, Anion Gap 5L, Glomerular Filtration Rate > 60.0, Calcium Level 8.1L, Total Bilirubin 0.2, Aspartate Amino Transf (AST /SGOT) 8, Alanine Aminotransferase (ALT/SGPT) 10L, Alkaline Phosphatase 148H, Total Protein 5.9L, Albumin 1.7L, Albumin/Globulin Ratio 0.4L CBC/BMP Laboratory Tests 06/19/20 12:34 Microbiology Microbiology 06/15/20 Urine Culture - Final, Complete 06/15/20 Blood Culture - Preliminary, Resulted No Growth after 72 hours. All specime... 06/15/20 Blood Culture - Preliminary, Resulted No Growth after 72 hours. All specime... Discharge Medications Scheduled Amoxicillin/Potassium Clav (Amox-Clav 500-125 mg Tablet) 1 Each Tablet, 500 MG PO TID Docusate Sodium (Docusate Sodium) 100 Mg Capsule, 100 MG PO BID, (Reported) Scheduled PRN Ibuprofen (Ibuprofen) 800 Mg Tablet, 800 MG PO Q8H PRN for PAIN, (Reported) Allergies Coded Allergies: Shrimp (Verified Allergy, Severe, throat closes can't breathe, 04/13/19) SEASONAL ALLERGIES (Verified Allergy, Unknown, 07/10/18) YUMIKO VELEZ DO Jun 19, 2020 19:55
== END 2020-06-19 16:31 | disposition home or self-care (01) | DRG 561 ==
LOC: M ED 23:43 → M ED INP 23:44 → M PED 06-15 05:53 → OBSVTOIN 06-15 23:24
PROVIDERS: ADMIT Obstetrics & Gynecology; ATTEND Obstetrics & Gynecology
DX: O86.03 Infection of obstetric surgical wound, organ and space site (principal); F17.210 Nicotine dependence, cigarettes, uncomplicated; O99.335 Smoking (tobacco) complicating the puerperium; Z91.013 Allergy to seafood

== ENCOUNTER 2020-06-22 15:29 | Emergency (ER) | payer OTHER ==
[~2020-06-22] VITALS: Ht 162.6 cm; Wt 118.9 kg
[~2020-06-22 15:29] MED LIST changes: +AMOX500T2 PO; +DOCU100C17 PO; +IBUP1TAB7 PO
[2020-06-22] MEDS ORDERED: PIPERACILLIN/TAZOBACTAM SOD 3.375 GM in D5W MINI-BAG PLUS 50 ML IV ONE (16:30)
[2020-06-22] MEDS ORDERED: NS 3,570 ML in IV 1 EA IV ONE (16:30)
[2020-06-22 16:53] LABS: BASO # 0.1 10^3/uL (0.0-0.2); BASO % 0.5 % (0.0-1.0); EOS # 0.4 10^3/uL (0.0-0.5); EOS % 3.7 % (0.0-3.0); LYMPH # 1.7 10^3/uL (1.5-5.0); LYMPH % 15.2 % (24.0-44.0); MEAN CORPUSCULAR HEMOGLOBIN 24.8 pg (27.0-33.0); MEAN CORPUSCULAR HGB CONC 28.6 g/dl (32.0-36.5); MEAN CORPUSCULAR VOLUME 86.6 fl (80.0-96.0); MONO # 0.7 10^3/uL (0.0-0.8); MONO % 6.5 % (0.0-5.0); PLATELET COUNT, AUTOMATED 352 10^3/uL (150-450); RED BLOOD COUNT 4.04 10^6/uL (4.00-5.40); WHITE BLOOD COUNT 11.5 10^3/uL (4.0-10.0)
[2020-06-22] MEDS ORDERED: ISOVUE-370 76% 100ML VIAL As Ordered ONE (16:58)
[2020-06-22 17:08] LABS: BLOOD UREA NITROGEN 9 MG/DL (7-18); CALCIUM LEVEL 8.4 MG/DL (8.5-10.1); CARBON DIOXIDE LEVEL 27 MEQ/L (21-32); CHLORIDE LEVEL 110 MEQ/L (98-107); CREATININE FOR GFR 0.71 MG/DL (0.55-1.30); GLOMERULAR FILTRATION RATE > 60.0 (>60); GLUCOSE, FASTING 83 MG/DL (70-100); POTASSIUM SERUM 3.7 MEQ/L (3.5-5.1); SODIUM LEVEL 144 MEQ/L (136-145)
[2020-06-22 17:26] LABS: ERYTHROCYTE SEDIMENTATION RATE 84 mm/hr (0-20)
--- NOTE | 2020-06-22 17:46 | ECGEPIP ---
[facility] - ED Test Date: 2020-06-22 Pat Name: DANIELLE URIBE Department: Room: - Gender: Female [employer]: : 1995 Requested By: NOEL Fernandez Order Number: [id number] Reading MD: Mikaela Rivas Measurements Intervals [place] Rate: 39 P: 53 MD: 148 QRS: 61 QRSD: 100 T: 63 QT: 543 QTc: 443 Interpretive Statements SINUS BRADYCARDIA PROLONGED QT INTERVAL, CLINICAL CORRELATION DECREASED RATE 06/03/15 Electronically Signed on 06-22-2020 17:46:06 EST by Mikaela Rivas
--- NOTE | 2020-06-22 18:19 | REPVR ---
PROCEDURE INFORMATION: Exam: CT Abdomen And Pelvis With Contrast Exam date and time: 06/22/2020 5:18 PM Age: 24 years old Clinical indication: Other: Bleeding; Prior surgery; Surgery date: <1 month; Surgery type: [facility] jun 03; Additional info: Copious drainage from incision, recent sepsis admit for same TECHNIQUE: Imaging protocol: Computed tomography of the abdomen and pelvis with intravenous contrast. Radiation optimization: All CT scans at this facility use at least one of these dose optimization techniques: automated exposure control; mA and/or kV adjustment per patient size (includes targeted exams where dose is matched to clinical indication); or iterative reconstruction. Contrast material: ISOVUE 370; Contrast volume: 100 ml; Contrast route: INTRAVENOUS (IV); COMPARISON: CT ABD/PEL W/IV CONTRAST ONLY 06/15/2020 1:52 AM FINDINGS: Pleural space: Miniscule bilateral pleural effusions with dependent atelectasis. Incidental calcified granuloma, lateral right lung base. Liver: Liver is diffusely enlarged. Gallbladder and bile ducts: Gallbladder is surgically absent. Pancreas: Pancreas appears normal. No focal mass or peripancreatic inflammation. Spleen: Spleen is diffusely enlarged, without focal lesion. Adrenal glands: Adrenal glands are normal in appearance. Kidneys and ureters: Kidneys appear normal, with no stone, solid mass or hydronephrosis. Stomach and bowel: No evidence of small bowel obstruction. No evidence of acute diverticulitis. Appendix: Normal caliber appendix is identified, with no adjacent inflammation. Intraperitoneal space: No pneumoperitoneum. Vasculature: No aortic aneurysm. Main portal and splenic veins enhance normally. Lymph nodes: No enlarged lymph nodes. Urinary bladder: Urinary bladder appears normal. Reproductive: Uterus has a appearance. No organized periuterine fluid collection. Bones/joints: Bony structures show no acute fracture or destructive process. Soft tissues: Diffuse body wall edema is present. Dermal edema and subcutaneous edema over the lower abdomen in the area of the Pfannenstiel incision, with small focus of air and non organized fluid suggesting cellulitis and probably phlegmon. Small right paramedian subcutaneous fluid collection measuring 4 x 2 by 2 cm anterior to the hiatus semilunaris on the right, at the acetabular roof level, which may represent a small incisional abscess. No intramuscular abscess, with edematous appearance of the rectus muscles. IMPRESSION: Cellulitis involving the anterior lower abdomen skin and subcutaneous tissues, and suggestion of a small abscess or phlegmon, right paramedian within the incision in the subcu tissues measuring 4 x 2 by 2 cm. This lies at the acetabular roof level at the hiatus semilunaris level on the right. The hepatosplenomegaly Electronically signed by: Akbar Brooks On 06/22/2020 18:19:45 PM
[2020-06-22 18:58] LABS: RSV AMPLIFICATION NEGATIVE (NEGATIVE)
[2020-06-22 21:30] LABS: ALBUMIN 2.3 GM/DL (3.2-5.2); ALT/SGPT 20 U/L (12-78); BILIRUBIN,DIRECT 0.1 MG/DL (0.0-0.2); BILIRUBIN,TOTAL 0.4 MG/DL (0.2-1.0); TOTAL PROTEIN 6.6 GM/DL (6.4-8.2)
[2020-06-22 22:07] VITALS: BP 144/71
--- NOTE | 2020-06-23 07:14 | CR.PDOC ---
General Date of Consultation: Jun 22, 2020 Consultation REASON FOR CONSULTATION/CHIEF COMPLAINT: Called down to inspect incision HISTORY OF PRESENT ILLNESS: Patient is status post section complicated by multiple seroma/abscess ease. She's already been readmitted and received antibiotic therapy. She is currently on by mouth Augmentin to continue her antibiotic therapy. . She presented to the ER today because her incision had opened up slightly and drained serous clear fluid. White blood cell count is mildly elevated. She is afebrile. CT abdomen and pelvis was repeated today with no evidence of fascial dehiscence. ALLERGIES: Please see below. HOME MEDICATIONS: Please see below. REVIEW OF SYSTEMS: See ER record PHYSICAL EXAMINATION: VITAL SIGNS: Please see below. GENERAL APPEARANCE: Alert and oriented overall comfortable not complaining of any pain. ABDOMEN: Soft, nondistended, nontender, obese. No guarding or rebound tenderness. The incision is overall clean, dry and intact with the exception of a 2 cm opening centrally. . There is no surrounding erythema or induration or necrosis. The opening was probed and the fascia was noted to be intact. Drainage from the opening was serosanguineous. No evidence of purulent discharge. LABORATORY DATA: Please see below. ASSESSMENT/PLAN: 1. Spontaneously resolving seroma. Continue with wet-to-dry dressings. No need for packing. This area will heal by secondary intention. Plan is to continue by mouth Augmentin to its completion 2. Follow-up as an outpatient in the office. Patient is yet to make an appointment Vital Signs/I&O Vital Signs Date Time Temp Pulse Resp B/P (MAP) Pulse Ox O2 Delivery O2 Flow Rate FiO2 06/22/20 22:07 96.9 39 17 144/71 (95) 97 Room Air I&O- Last 24 Hours up to 6 AM 06/23/20 06:00 Intake Total 3620 ml Balance 3620 ml Laboratory Data Labs 24H Laboratory Tests 2 06/22/20 15:46: Anion Gap 7L, Glomerular Filtration Rate > 60.0, Lactic Acid Level 0.8, Calcium Level 8.4L, Total Bilirubin 0.4, Direct Bilirubin 0.1, Aspartate Amino Transf (AST/SGOT) 11, Alanine Aminotransferase (ALT/SGPT) 20, Alkaline Phosphatase 169H, Total Protein 6.6, Albumin 2.3L, Albumin/Globulin Ratio 0.5L 06/22/20 16:22: Immature Granulocyte % (Auto) 4.1H, Neutrophils (%) (Auto) 70.0H, Lymphocytes (%) (Auto) 15.2L, Monocytes (%) (Auto) 6.5H, Eosinophils (%) (Auto) 3.7H, Basophils (%) (Auto) 0.5, Neutrophils # (Auto) 8.0, Lymphocytes # (Auto) 1.7, Monocytes # (Auto) 0.7, Eosinophils # (Auto) 0.4, Basophils # (Auto) 0.1, Nucleated Red Blood Cells % (auto) 0.3H, Erythrocyte Sedimentation Rate 84H 06/22/20 16:47: POC Beta HCG, Quantitative < 5.0 06/22/20 18:08: Coronavirus (COVID-19)(PCR) NEGATIVE, Influenza Type A (RT-PCR) NEGATIVE, Influenza Type B (RT-PCR) NEGATIVE, Respiratory Syncytial Virus (PCR) NEGATIVE CBC/BMP Laboratory Tests 06/22/20 15:46 06/22/20 16:22 Microbiology Microbiology 06/22/20 Gram Stain, Received Pending 06/22/20 Wound Culture, Received Pending 06/22/20 Blood Culture, Received Pending 06/22/20 Blood Culture, Received Pending Allergies Coded Allergies: Shrimp (Verified Allergy, Severe, throat closes can't breathe, 04/13/19) SEASONAL ALLERGIES (Verified Allergy, Unknown, 07/10/18) Home Medications Scheduled Amoxicillin/Potassium Clav (Amox-Clav 500-125 mg Tablet) 1 Each Tablet, 500 MG PO TID for 10 Days, #30 Scheduled PRN Ibuprofen (Ibuprofen) 800 Mg Tablet, 800 MG PO Q8H PRN for PAIN, (Reported) YUMIKO VELEZ DO Jun 23, 2020 07:14
== END 2020-06-22 22:17 | disposition home or self-care (01) ==
LOC: M ED 15:29
DX: O90.0 Disruption of cesarean delivery wound (principal); O98.83 Other maternal infectious and parasitic diseases complicating the puerperium; O86.01 Infection of obstetric surgical wound, superficial incisional site; R00.1 Bradycardia, unspecified; O99.335 Smoking (tobacco) complicating the puerperium; F17.210 Nicotine dependence, cigarettes, uncomplicated; Z91.013 Allergy to seafood; Z79.2 Long term (current) use of antibiotics
CPT/HCPCS: 74177; 80048; 80076; 83605; 84702; 85025; 85652; 86850; 86900; 86901; 87040; 87070; 87077; 87186; 87205; 87631; 93005; 96361; 96365; 99284; J2543; Q9967

== ENCOUNTER 2021-01-09 20:49 | Emergency (ER) | payer OTHER ==
[~2021-01-09] VITALS: Ht 165.1 cm; Wt 108.4 kg
[2021-01-10 00:08] LABS: BASO # 0.1 10^3/uL (0.0-0.2); BASO % 0.6 % (0.0-1.0); EOS # 0.3 10^3/uL (0.0-0.5); EOS % 2.8 % (0.0-3.0); HEMATOCRIT 43.5 % (36.0-47.0); HEMOGLOBIN 13.3 g/dl (12.0-15.5); LYMPH # 2.4 10^3/uL (1.5-5.0); LYMPH % 25.8 % (24.0-44.0); MEAN CORPUSCULAR HEMOGLOBIN 25.6 pg (27.0-33.0); MEAN CORPUSCULAR HGB CONC 30.6 g/dl (32.0-36.5); MEAN CORPUSCULAR VOLUME 83.7 fl (80.0-96.0); MONO # 0.6 10^3/uL (0.0-0.8); MONO % 6.2 % (2.0-8.0); NEUTROPHILS % 63.9 % (36.0-66.0); PLATELET COUNT, AUTOMATED 193 10^3/uL (150-450); WHITE BLOOD COUNT 9.4 10^3/uL (4.0-10.0)
[2021-01-10] MEDS ORDERED: ISOVUE-370 76% 100ML VIAL As Ordered ONE (00:29)
--- NOTE | 2021-01-10 01:22 | REPVR ---
PROCEDURE INFORMATION: Exam: CT Abdomen And Pelvis With Contrast Exam date and time: 01/09/2021 12:37 AM Age: 25 years old Clinical indication: Other: Rectal bleeding; Prior surgery TECHNIQUE: Imaging protocol: Computed tomography of the abdomen and pelvis with contrast. Radiation optimization: All CT scans at this facility use at least one of these dose optimization techniques: automated exposure control; mA and/or kV adjustment per patient size (includes targeted exams where dose is matched to clinical indication); or iterative reconstruction. Contrast material: ISOVUE 370; Contrast volume: 100 ml; Contrast route: INTRAVENOUS (IV); COMPARISON: CT ABD/PEL W/IV CONTRAST ONLY 06/22/2020 5:12 PM FINDINGS: Lungs: No suspicious mass or airspace process in the visualized lung bases. Incidental calcified granuloma at the right lung base. Liver: Liver is unremarkable except for focal fatty infiltration anteriorly. Gallbladder and bile ducts: Gallbladder is surgically absent. Pancreas: Pancreas appears normal. No focal mass or peripancreatic inflammation. Spleen: Spleen appears homogeneous without focal mass. Adrenal glands: Adrenal glands are normal in appearance. Kidneys and ureters: Kidneys appear normal, with no stone, solid mass or hydronephrosis. Stomach and bowel: No concerning asymmetry or abnormality at the GE junction. No evidence of small bowel obstruction. No evidence of acute diverticulitis. Appendix: Normal caliber appendix is identified, with no adjacent inflammation. Intraperitoneal space: No pneumoperitoneum. No evidence of mesenteric mass. Vasculature: No aortic aneurysm. Main portal and splenic veins enhance normally. Lymph nodes: No enlarged lymph nodes. Urinary bladder: Urinary bladder appears normal. Reproductive: Female reproductive organs appear unremarkable. Bones/joints: Bony structures show no acute fracture or destructive process. Soft tissues: No concerning focal abnormality of the extra-abdominal and pelvic soft tissues. No effacement of normal fat planes in the ischiorectal fossa. IMPRESSION: No acute or concerning focal abdominal or pelvic process. No explanation for rectal bleeding Electronically signed by: Akbar Brooks On 01/10/2021 01:21:27 AM
[2021-01-10] MEDS ORDERED: COLA100C5 PO (01:44)
[2021-01-10 02:01] VITALS: BP 112/60
== END 2021-01-10 02:12 | disposition home or self-care (01) ==
LOC: M ED 20:49
DX: K62.5 Hemorrhage of anus and rectum (principal); E66.9 Obesity, unspecified; G43.909 Migraine, unspecified, not intractable, without status migrainosus; K21.9 Gastro-esophageal reflux disease without esophagitis; F41.9 Anxiety disorder, unspecified; F32.9 Major depressive disorder, single episode, unspecified; N92.6 Irregular menstruation, unspecified; J30.2 Other seasonal allergic rhinitis; Z91.013 Allergy to seafood
CPT/HCPCS: 74177; 80047; 84702; 85025; 99284; Q9967

== ENCOUNTER → 2021-01-12 | Outpatient (CLI) | payer OTHER ==
[~2021-01-12] MED LIST changes: +COLA100C5 PO
--- NOTE | 2021-01-12 15:48 | REP ---
INDICATION: LOW BACK PAIN. TECHNIQUE: AP and frog-lateral views FINDINGS: The hip joint space is symmetric and relatively well maintained. There is no acute fracture, dislocation, or subluxation. IMPRESSION: Within normal limits <Electronically signed by Gianni Tomlinson > 01/12/21 [id number]
--- NOTE | 2021-01-12 16:02 | REP ---
INDICATION: LOW BACK PAIN. TECHNIQUE: Three views FINDINGS: Limited three-view examination of the lumbar spine shows a disc spaces to be symmetric and well maintained throughout. Vertebral body height and alignment is within normal limits. The pedicles are intact bilaterally. IMPRESSION: Within normal limits <Electronically signed by Gianni Tomlinson > 01/12/21 1554
== END ==
LOC: M RAD 14:45
PROVIDERS: ATTEND Physician Assistant
DX: M54.5 Low back pain (principal)

== ENCOUNTER 2023-04-20 09:55 | Emergency (ER) | payer OTHER, SELFPAY ==
[~2023-04-20] VITALS: Ht 162.6 cm; Wt 97.2 kg
[~2023-04-20 09:55] MED LIST changes: +DOK1CAP4 PO; -DOK1CAP7 PO
[2023-04-20 11:36] LABS: BASO % 0.5 % (0.0-1.0); EOS # 0.2 10^3/uL (0.0-0.5); EOS % 1.7 % (0.0-3.0); HEMATOCRIT 41.1 % (36.0-47.0); HEMOGLOBIN 13.4 g/dl (12.0-15.5); LYMPH # 1.3 10^3/uL (1.5-5.0); LYMPH % 14.5 % (24.0-44.0); MEAN CORPUSCULAR HEMOGLOBIN 28.8 pg (27.0-33.0); MEAN CORPUSCULAR HGB CONC 32.6 g/dl (32.0-36.5); MEAN CORPUSCULAR VOLUME 88.2 fl (80.0-96.0); MONO # 0.7 10^3/uL (0.0-0.8); MONO % 8.3 % (2.0-8.0); NEUTROPHILS # 6.5 10^3/uL (1.5-8.5); NEUTROPHILS % 74.8 % (36.0-66.0); PLATELET COUNT, AUTOMATED 134 10^3/uL (150-450); RED BLOOD COUNT 4.66 10^6/uL (4.00-5.40); WHITE BLOOD COUNT 8.7 10^3/uL (4.0-10.0)
[2023-04-20] MEDS ORDERED: dexAMETHasone 20MG/5ML VIAL IV ONE (11:50)
[2023-04-20] MEDS ORDERED: KETOROLAC 30 MG/ML 1ML VIAL IV ONE (11:50)
[2023-04-20] MEDS ORDERED: AMPICILLIN SOD/SULBACTAM SOD 3 GM in D5W MINI-BAG PLUS 50 ML IV ONE (11:50)
[2023-04-20] MEDS ORDERED: ISOVUE-370 76% 100ML VIAL As Ordered ONE (12:02)
[2023-04-20 12:17] LABS: ERYTHROCYTE SEDIMENTATION RATE 43 mm/hr (0-20)
[2023-04-20] MEDS ORDERED: MEDR4PAK PO (15:57)
[2023-04-20] MEDS ORDERED: AMOX875T2 PO (15:57)
[2023-04-20] MEDS ORDERED: AMPICILLIN SOD/SULBACTAM SOD 3 GM in D5W MINI-BAG PLUS 100 ML IV ONE (18:30)
[2023-04-20 19:12] VITALS: BP 132/72; TEMP 98; O2SAT 98
== END 2023-04-20 19:36 | disposition home or self-care (01) ==
LOC: M ED 09:55
DX: K04.7 Periapical abscess without sinus (principal); F17.290 Nicotine dependence, other tobacco product, uncomplicated; F12.90 Cannabis use, unspecified, uncomplicated; J30.2 Other seasonal allergic rhinitis; Z91.013 Allergy to seafood
CPT/HCPCS: 70487; 80047; 84702; 85025; 85652; 86140; 87040; 96365; 96366; 96375; 99284; J0295; J1100; J1885; Q9967